=== PATIENT | male | born 1945 | race American Indian/Alaskan Native ===

== ENCOUNTER 2016-10-16 05:11 | Inpatient (IN) | payer BC, MEDICARE ==
[2016-10-16 05:32] LABS: Basophils % (Auto) 1.4 % (0.0-1.8); Eosinophils % (Auto) 1.9 % (0.0-4.3); Hematocrit 43.6 % (35.5-45.6); Hemoglobin 14.5 gm/dl (11.8-15.2); Mean Corpuscular HGB Conc 33 % (32-34); Mean Corpuscular Hemoglobin 28 pg (28-32); Mean Corpuscular Volume 84 fl (84-94); Platelet Count 229 K/mm3 (140-440); Red Cell Distribution Width 14.3 % (13.2-15.2); White Blood Count 6.9 K/mm3 (4.5-11.0)
[2016-10-16 05:45] LABS: INR 1.03 (0.87-1.13)
[2016-10-16 05:46] LABS: Partial Thromboplastin Time 28.4 Sec. (24.2-36.6)
[2016-10-16 05:55] LABS: Anion Gap 14 mmol/L; BUN/Creatinine Ratio 6.42; Blood Urea Nitrogen 9 mg/dL (9-20); Calcium 8.8 mg/dL (8.4-10.2); Carbon Dioxide 29 mmol/L (22-30); Chloride 100.1 mmol/L (98-107); Glucose 117 mg/dL (75-100); Potassium 4.1 mmol/L (3.6-5.0); Sodium 139 mmol/L (137-145)
--- NOTE | 2016-10-16 06:49 | Event Note ---
Date: 10/16/16 initial ekg morphologically abnormal, not c/w stemi stat repeat ekg also abnormal, not c/w stemi. precordial abnormalities on repeat ekg appear improved.
[2016-10-16 07:00] LABS: Creatine Kinase MB 5.1 ng/mL (0.0-4.0)
--- NOTE | 2016-10-16 07:44 | Emergency Department Report ---
ED Chest Pain HPI - General Chief Complaint: Chest Pain Stated Complaint: CHEST PAIN Time Seen by Provider: 10/16/16 07:17 Source: patient Mode of arrival: Ambulatory Limitations: No Limitations - History of Present Illness Initial Comments: The patient states she has chronic problems with hiccups. Last night he took her Thorazine tablet for this. However he was not experiencing any chest pain until 4 AM. The hiccuping had already stopped. Patient was at work at the time. He describes a dull ache in the substernal region which lasted for 2 hours. It did not radiate. It was not pleuritic. There were no associated symptoms. Patient states that he was seen by [facility] last year and had a stress test. He states he "passed with flying colors". He has no knowledge of having a previously abnormal EKG. Severity scale (0 -10): 4 - Related Data Home Medications Medication Instructions Recorded Confirmed Last Taken ALBUTEROL Inhaler [ProAir HFA 2 puff IH QID PRN 10/31/14 10/16/16 Unknown Inhaler] Amlodipine Besylate [Amlodipine 10 mg PO DAILY 11/14/14 10/16/16 11/14/14 05:00 Besylate] Atorvastatin Calcium 20 mg PO DAILY 10/16/16 10/16/16 Unknown Previous Rx's Medication Instructions Recorded Last Taken Type Cyclobenzaprine [Flexeril 10 MG 10 mg PO Q8H PRN #60 tablet 11/15/14 Unknown Rx TAB] Allergies Allergy/AdvReac Type Severity Reaction Status Date / Time peanut Allergy Swelling Unverified 07/10/14 13:20 Penicillins Allergy Itching Verified 04/15/14 11:29 GUDELIA score - Gudelia Score Age > 65: (1) Yes Aspirin use within the Past 7 Days: (0) No 3 or more CAD Risk Factors: (1) Yes 2 or more Angina events in past 24 hrs: (0) No Known CAD with more than 50% Stenosis: (0) No Elevated Cardiac Markers: (1) Yes ST Deviation Greater than 0.5mm: (0) No GUDELIA Score: 3 ED Review of Systems ROS: Stated complaint: CHEST PAIN Other details as noted in HPI Constitutional: denies: chills, fever Eyes: denies: eye pain, eye discharge, vision change ENT: denies: ear pain, throat pain Respiratory: denies: cough, shortness of breath, wheezing Cardiovascular: chest pain. denies: palpitations Endocrine: no symptoms reported Gastrointestinal: denies: abdominal pain, nausea, diarrhea Genitourinary: denies: urgency, dysuria Musculoskeletal: denies: back pain, joint swelling, arthralgia Skin: denies: rash, lesions Neurological: denies: headache, weakness, paresthesias Psychiatric: denies: anxiety, depression Hematological/Lymphatic: denies: easy bleeding, easy bruising ED Past Medical Hx - Past Medical History Previous Medical History?: Yes Hx Hypertension: Yes Hx Kidney Stones: Yes Hx Asthma: Yes (seasonal.) Additional medical history: bells palsy - Surgical History Past Surgical History?: Yes Hx Cholecystectomy: Yes (2009) - Social History Smoking Status: Never Smoker Substance Use Type: None - Medications Home Medications: Home Medications Medication Instructions Recorded Confirmed Last Taken Type ALBUTEROL Inhaler [ProAir HFA 2 puff IH QID PRN 10/31/14 10/16/16 Unknown History Inhaler] Amlodipine Besylate [Amlodipine 10 mg PO DAILY 11/14/14 10/16/16 11/14/14 05:00 History Besylate] Cyclobenzaprine [Flexeril 10 MG 10 mg PO Q8H PRN #60 tablet 11/15/14 10/16/16 Unknown Rx TAB] Atorvastatin Calcium 20 mg PO DAILY 10/16/16 10/16/16 Unknown History ED Physical Exam - General Limitations: No Limitations General appearance: alert, in no apparent distress - Head Head exam: Present: atraumatic, normocephalic - Eye Eye exam: Present: normal appearance, PERRL, EOMI. Absent: scleral icterus - ENT ENT exam: Present: normal exam, mucous membranes moist - Neck Neck exam: Present: normal inspection. Absent: tenderness, meningismus - Respiratory Respiratory exam: Present: normal lung sounds bilaterally. Absent: respiratory distress - Cardiovascular Cardiovascular Exam: Present: regular rate, normal rhythm. Absent: systolic murmur, diastolic murmur, rubs, gallop - GI/Abdominal GI/Abdominal exam: Present: soft, normal bowel sounds. Absent: distended, tenderness, guarding, rebound, rigid - Rectal Rectal exam: Present: deferred - Extremities Exam Extremities exam: Present: normal inspection - Back Exam Back exam: Present: normal inspection - Neurological Exam Neurological exam: Present: alert, oriented X3, CN II-XII intact. Absent: motor sensory deficit - Psychiatric Psychiatric exam: Present: normal affect, normal mood - Skin Skin exam: Present: warm, dry, intact, normal color. Absent: rash ED Course Vital Signs 10/16/16 10/16/16 10/16/16 05:21 06:29 06:30 Temperature 98.6 F Pulse Rate 62 Respiratory 18 14 19 Rate Blood Pressure 124/65 Blood Pressure 109/56 [Right] O2 Sat by Pulse 99 97 96 Oximetry 10/16/16 10/16/16 10/16/16 07:20 07:27 08:45 Temperature 98.5 F 97.7 F Pulse Rate 58 L 62 Respiratory 16 18 18 Rate Blood Pressure Blood Pressure 115/78 148/62 [Right] O2 Sat by Pulse 100 97 97 Oximetry - Reevaluation(s) Reevaluation #1: Patient will be treated with heparin and aspirin. He'll be admitted to the hospitalist service to rule out acute coronary syndrome. We'll consult [place] [facility]. 10/16/16 07:44 ED Medical Decision Making - Lab Data Result diagrams: 10/16/16 05:21 10/16/16 05:21 Laboratory Results - last 24 hr 10/16/16 10/16/16 10/16/16 05:21 05:21 05:21 WBC 6.9 RBC 5.20 H Hgb 14.5 Hct 43.6 MCV 84 MCH 28 MCHC 33 RDW 14.3 Plt Count 229 Lymph % (Auto) 36.5 H Clark % (Auto) 14.0 H Eos % (Auto) 1.9 Baso % (Auto) 1.4 Lymph # 2.5 Clark # 1.0 H Eos # 0.1 Baso # 0.1 Seg Neutrophils % 46.2 Seg Neutrophils # 3.2 PT 13.4 INR 1.03 APTT 28.4 Sodium 139 Potassium 4.1 Chloride 100.1 Carbon Dioxide 29 Anion Gap 14 BUN 9 Creatinine 1.4 Estimated GFR > 60 BUN/Creatinine Ratio 6.42 Glucose 117 H Calcium 8.8 Total Creatine Kinase CK-MB (CK-2) CK-MB (CK-2) Rel Index Troponin T < 0.010 10/16/16 05:21 WBC RBC Hgb Hct MCV MCH MCHC RDW Plt Count Lymph % (Auto) Clark % (Auto) Eos % (Auto) Baso % (Auto) Lymph # Clark # Eos # Baso # Seg Neutrophils % Seg Neutrophils # PT INR APTT Sodium Potassium Chloride Carbon Dioxide Anion Gap BUN Creatinine Estimated GFR BUN/Creatinine Ratio Glucose Calcium Total Creatine Kinase 177 H CK-MB (CK-2) 5.1 H CK-MB (CK-2) Rel Index 2.8 Troponin T - EKG Data -: EKG Interpreted by Me EKG shows normal: sinus rhythm, axis, intervals, QRS complexes - EKG Data 10/16/16 07:50 The patient had 2 serial EKGs previously reviewed by Dr. Jones. The first EKG did show slight ST elevation in V2 and V3 there are inverted T waves in the high lateral and anterolateral leads as well as standard lead aVF. On the second EKG the J-point is down somewhat. This does not need ST elevation UT criteria. However the EKGs are nonreassuring and ischemia may be considered normal sinus rhythm and left axis/LAFB is noted. The patient does have a prior EKG dated 05-19. There are inverted T waves on this EKG in V5 and V6 standard lead to and there is some flattening elsewhere. There are some increased T- wave inversions. However, they are not very deep. 10/16/16 07:52 - Radiology Data CXR NAF Critical care attestation.: If time is entered above; I have spent that time in minutes in the direct care of this critically ill patient, excluding procedure time. ED Disposition Clinical Impression: Abnormal EKG Chest pain Qualifiers: Chest pain type: unspecified Qualified Code(s): R07.9 - Chest pain, unspecified Disposition: OP ADMITTED IP TO THIS HOSP Is pt being admited?: Yes Does the pt Need Aspirin: Yes Condition: Stable Time of Disposition: 07:53
[2016-10-16] MEDS ORDERED: ASPIRIN PO ONE (07:47)
--- NOTE | 2016-10-16 08:28 | History and Physical Report ---
History of Present Illness Date of examination: 10/16/16 History of present illness: The patient states she has chronic problems with hiccups. Last night he took her Thorazine tablet for this. However he was not experiencing any chest pain until 4 AM. The hiccuping had already stopped. Patient was at work at the time. He describes a dull ache in the substernal region which lasted for 2 hours. It did not radiate. It was not pleuritic. There were no associated symptoms. Patient states that he was seen by [facility] last year and had a stress test. He states he "passed with flying colors". He has no knowledge of having a previously abnormal EKG. Past History Past Medical History: hypertension, hyperlipidemia Medications and Allergies Allergies Allergy/AdvReac Type Severity Reaction Status Date / Time peanut Allergy Swelling Unverified 07/10/14 13:20 Penicillins Allergy Itching Verified 04/15/14 11:29 Home Medications Medication Instructions Recorded Confirmed Last Taken Type ALBUTEROL Inhaler [ProAir HFA 2 puff IH QID PRN 10/31/14 10/16/16 Unknown History Inhaler] Amlodipine Besylate [Amlodipine 10 mg PO DAILY 11/14/14 10/16/16 11/14/14 05:00 History Besylate] Cyclobenzaprine [Flexeril 10 MG 10 mg PO Q8H PRN #60 tablet 11/15/14 10/16/16 Unknown Rx TAB] Atorvastatin Calcium 20 mg PO DAILY 10/16/16 10/16/16 Unknown History Active Meds: Active Medications Enoxaparin Sodium (Lovenox) 80 mg 1 mg/kg (80 mg) SUB-Q Q12HR [place] Review of Systems Cardiovascular: chest pain Exam - Constitutional Vitals: Temp Pulse Resp BP Pulse Ox 98.6 F 62 19 124/65 96 10/16/16 05:21 10/16/16 05:21 10/16/16 06:30 10/16/16 06:29 10/16/16 06:30 General appearance: Present: mild distress - EENT Eyes: Present: PERRL, EOM intact ENT: hearing intact, clear oral mucosa - Neck Neck: Present: supple, normal ROM - Respiratory Respiratory effort: normal Respiratory: bilateral: CTA - Cardiovascular Rhythm: regular Heart Sounds: Present: S1 & S2 - Extremities Extremities: no ischemia, No edema - Abdominal General gastrointestinal: Present: soft, non-tender, non-distended, normal bowel sounds - Musculoskeletal Musculoskeletal: strength equal bilaterally - Psychiatric Psychiatric: appropriate mood/affect, intact judgment & insight - Neurologic Neurologic: CNII-XII intact, moves all extremities Results - Labs CBC & Chem 7: 10/16/16 05:21 10/16/16 05:21 Labs: Laboratory Last Values WBC 6.9 K/mm3 (4.5-11.0) 10/16/16 05:21 RBC 5.20 M/mm3 (3.65-5.03) H 10/16/16 05:21 Hgb 14.5 gm/dl (11.8-15.2) 10/16/16 05:21 Hct 43.6 % (35.5-45.6) 10/16/16 05:21 MCV 84 fl (84-94) 10/16/16 05:21 MCH 28 pg (28-32) 10/16/16 05:21 MCHC 33 % (32-34) 10/16/16 05:21 RDW 14.3 % (13.2-15.2) 10/16/16 05:21 Plt Count 229 K/mm3 (140-440) 10/16/16 05:21 Lymph % (Auto) 36.5 % (13.4-35.0) H 10/16/16 05:21 [place] % (Auto) 14.0 % (0.0-7.3) H 10/16/16 05:21 Eos % (Auto) 1.9 % (0.0-4.3) 10/16/16 05:21 Baso % (Auto) 1.4 % (0.0-1.8) 10/16/16 05:21 Lymph # 2.5 K/mm3 (1.2-5.4) 10/16/16 05:21 [place] # 1.0 K/mm3 (0.0-0.8) H 10/16/16 05:21 Eos # 0.1 K/mm3 (0.0-0.4) 10/16/16 05:21 Baso # 0.1 K/mm3 (0.0-0.1) 10/16/16 05:21 Seg Neutrophils % 46.2 % (40.0-70.0) 10/16/16 05:21 Seg Neutrophils # 3.2 K/mm3 (1.8-7.7) 10/16/16 05:21 PT 13.4 Sec. (12.2-14.9) 10/16/16 05:21 INR 1.03 (0.87-1.13) 10/16/16 05:21 APTT 28.4 Sec. (24.2-36.6) 10/16/16 05:21 Sodium 139 mmol/L (137-145) 10/16/16 05:21 Potassium 4.1 mmol/L (3.6-5.0) 10/16/16 05:21 Chloride 100.1 mmol/L (98-107) 10/16/16 05:21 Carbon Dioxide 29 mmol/L (22-30) 10/16/16 05:21 Anion Gap 14 mmol/L 10/16/16 05:21 BUN 9 mg/dL (9-20) 10/16/16 05:21 Creatinine 1.4 mg/dL (0.8-1.5) 10/16/16 05:21 Estimated GFR > 60 ml/min 10/16/16 05:21 BUN/Creatinine Ratio 6.42 % 10/16/16 05:21 Glucose 117 mg/dL (75-100) H 10/16/16 05:21 Calcium 8.8 mg/dL (8.4-10.2) 10/16/16 05:21 Total Creatine Kinase 177 units/L (55-170) H 10/16/16 05:21 CK-MB (CK-2) 5.1 ng/mL (0.0-4.0) H 10/16/16 05:21 CK-MB (CK-2) Rel Index 2.8 (0-4) 10/16/16 05:21 Troponin T < 0.010 ng/mL (0.00-0.029) 10/16/16 05:21 Assessment and Plan - Patient Problems (1) Abnormal EKG Current Visit: Yes Status: Acute Plan to address problem: Awaiting further cardiology intervention (2) Chest pain Current Visit: Yes Status: Acute Qualifiers: Chest pain type: unspecified Ischemic chest pain type: I Qualified Code(s ): R07.9 - Chest pain, unspecified Plan to address problem: Patient will be admitted to telemetry, will get cardiology consult, aspirin, beta blockers, 2-D echo, Nikolai, (3) HTN (hypertension) Current Visit: No Status: Chronic Qualifiers: Hypertension type: H Plan to address problem: Continue metoprolol (4) Hypercholesteremia Current Visit: No Status: Chronic Plan to address problem: We'll start simvastatin and follow lipid panel
--- NOTE | 2016-10-16 08:28 | XRay Report ---
FINAL REPORT EXAM: XR CHEST 1V AP HISTORY: cp TECHNIQUE: Chest, portable PRIORS: None. FINDINGS: There is no infiltrate or pleural effusion seen. The lungs and pleural spaces are clear. There is no pneumothorax. There is no pulmonary vascular congestion. IMPRESSION: There is no acute abnormality identified.
[2016-10-16] MEDS ORDERED: LOPRESSOR PO ONE (08:40)
[2016-10-16] MEDS ORDERED: FLEXERIL PO PRN (10:00)
[2016-10-16] MEDS ORDERED: PROAIR IH PRN (10:00)
[2016-10-16] MEDS ORDERED: LOVENOX SUB-Q SCH (10:00)
[2016-10-16] MEDS ORDERED: NORCO 5/325 PO PRN (10:00)
--- NOTE | 2016-10-16 11:34 | Consultation ---
History of Present Illness Consult date: 10/16/16 Consult reason: chest pain History of present illness: The patient states he presented to the ER this morning with chest pain at 4 AM. the patient was at work at the time. He describes a dull ache in the substernal region which lasted for 2 hours, without radiation, constant. Patient has never had chest pain before. PAtient denies SOB, peripheral edema, orhtopnea, pnd, palpitations, dizziness or syncope. Past History Past Medical History: hypertension, hyperlipidemia Past Surgical History: Other (brain surgery - removal of mass) Social history: denies: smoking, alcohol abuse, prescription drug abuse, IV drug use Family history: no significant family history Medications and Allergies Allergies Allergy/AdvReac Type Severity Reaction Status Date / Time peanut Allergy Swelling Unverified 07/10/14 13:20 Penicillins Allergy Itching Verified 04/15/14 11:29 Home Medications Medication Instructions Recorded Confirmed Last Taken Type ALBUTEROL Inhaler [ProAir HFA 2 puff IH QID PRN 10/31/14 10/16/16 Unknown History Inhaler] Amlodipine Besylate [Amlodipine 10 mg PO DAILY 11/14/14 10/16/16 11/14/14 05:00 History Besylate] Cyclobenzaprine [Flexeril 10 MG 10 mg PO Q8H PRN #60 tablet 11/15/14 10/16/16 Unknown Rx TAB] Atorvastatin Calcium 20 mg PO DAILY 10/16/16 10/16/16 Unknown History Active Meds: Active Medications Acetaminophen/Hydrocodone Bitart ([place] 5/325) 1 each PO Q6H PRN PRN Reason: Pain, Moderate (4-6) Acyclovir (Zovirax) 400 mg PO Q8HR [place]TON Albuterol (Proair) 2 puff IH QID PRN PRN Reason: Shortness Of Breath Cyclobenzaprine HCl (Flexeril) 10 mg PO Q8H PRN PRN Reason: Muscle Spasm Enoxaparin Sodium (Lovenox) 80 mg 1 mg/kg (80 mg) SUB-Q Q12HR [place] Sodium Chloride (Nacl 0.9% 1000 Ml) 1,000 mls @ 125 mls/hr IV DIRECT H[place] Metoprolol Tartrate (Lopressor) 25 mg PO QDAY [place] Simvastatin (Zocor) 20 mg PO QHS [place] Review of Systems All systems: negative (for complaints mentioned in HPI) Physical Examination Vital Signs Temp Pulse Resp BP Pulse Ox 98.6 F 62 18 109/56 99 10/16/16 05:21 10/16/16 05:21 10/16/16 05:21 10/16/16 05:21 10/16/16 05:21 General appearance: no acute distress HEENT: Positive: PERRL, EOMI Neck: Positive: neck supple, trachea midline Cardiac: Positive: Reg Rate and Rhythm, S1/S2 Lungs: Positive: Normal Exam, clear to auscultation, Normal Breath Sounds Abdomen: Positive: Soft, Active Bowel Sounds Extremities: Present: normal. Absent: edema Results 10/16/16 05:10/16/16 05:21 EKG interpretations - EKG Sinus rhythms and dysrhythmias: sinus rhythm (sinus rhythm with nonspecific sttw changes) Assessment and Plan (1) Abnormal EKG (2) Chest pain - resolved. initial troponin negative. Continue to cycle troponins. BB, ASA, and statin recommended. Stress test and echo ordered. (3) HTN (hypertension) - continue metoprolol (4) Hypercholesteremia - agree with starting statin.
[2016-10-16] MEDS: ZOVIRAX PO SCH ×2 (16:01→22:23)
[2016-10-16] MEDS: LOVENOX SUB-Q SCH ×2 (16:01→22:23)
[2016-10-16] MEDS: LOPRESSOR PO SCH (16:02)
[2016-10-16] MEDS: NACL 0.9% 1000 ML 1,000 ML IV SCH (16:03)
--- NOTE | 2016-10-16 17:34 | Admit Criteria Form ---
Admission Criteria Documentation: CARDIOLOGY GRG Clinical Indications for Admission to Inpatient Care ( Place 'X' for any and all applicable criteria): Hospital admission is needed for appropriate care of the patient because of ANY ONE of the following (1): [ ] I. Hemodynamic instability as indicated by ALL of the following (1)(2)(3) (4)(5) [ ]a) Vital signs or other findings not as expected for chronic patient condition or baseline [ ]b) Instability indicated by ANY ONE of the following: [ ]i) Hypotension [ ]ii) Symptomatic Tachycardia unresponsive to treatment ( e.g., analgesia, fluids, sedation as indicated) [ ]iii) Inadequate perfusion indicated by ANY ONE of the following: [ ] 1) Lactic acidosis (> 2 mmol/L) [ ] 2) New abnormal capillary refill (> 3 seconds) [ ] 3) Reduced urine output [ ] 4) New altered mental status [ ]iv) Orthostatic vital sign changes unresponsive to treatment (e.g., fluids) [ ]v) IV inotropic or vasopressor medication required to maintain adequate blood pressure or perfusion [ ] II. Severe heart failure as indicated by ANY ONE of the following(17)(18) [ ]a) Respiratory distress [ ]b) Hypotension [ ]c) Anasarca (refractory to outpatient therapy) [ ]d) Cardiac arrhythmias of immediate concern [ ]e) Myocardial ischemia [ ] III. Cardiac arrhythmias or findings of immediate concern indicated by ANY ONE of the following (19)(20): [ ] a) Heart rhythms that are inherently dangerous or unstable indicated by ANY ONE of the following (21)(22)(23): [ ] i) Resuscitated ventricular fibrillation or cardiac arrest [ ] ii) Ventricular escape rhythm [ ] iii) Sustained ventricular tachycardia (30 seconds or more of ventricular rhythm at greater than 100 beats per minute) [ ] iv) Nonsustained ventricular tachycardia and ANY ONE of the following: [ ] 1) Suspected cardiac ischemia as cause or consequence of ventricular tachycardia [ ] 2) In setting of acute myocarditis [ ] b) Unstable cardiac conduction defects indicated by ANY ONE of the following(23)(24)(25) [ ] i) Type II second-degree atrioventricular block [ ]ii) Third-degree atrioventricular block [ ]iii) New-onset left bundle branch block with suspected myocardial ischemia [ ]c) Any heart rhythm and ANY ONE of the following (21)(22)(26)(27) (28) [ ] i) Continuous long-term ECG monitoring needed (e.g., initiation of drug requiring monitoring for more than 24 hours) [ ] ii) Patient has automatic implanted cardioverter defibrillator that is repeatedly firing, malfunctioning, or in need of immediate adjustment of settings beyond the scope of ambulatory or observation care [ ]d) Heart rhythms of concern due to ANY ONE of the following: [ ] i) Hypotension [ ] ii) Respiratory distress [ ] iii) Association with other significant symptoms (e.g., bradycardia with syncope or ongoing dizziness, supraventricular tachycardia with chest pain (14)(15)(17) [ ] IV. Monitoring for cardiac contusion beyond the scope of observation care needed [A](30)(31)(32) [ ] V. Surgical or device complication (e.g., valve replacement complication , pacemaker dysfunction) (35)(41)(44)(45)(46) [ ] . Inpatient palliative care needed. [B](49) Also use Inpatient Palliative Care Criteria [ ] VII. Nonbacterial thrombotic (marantic) endocarditis (36)(43)(47)(48) [ X] VIII. Cardiology condition, symptom, or finding for which emergency and observation care has failed or are not considered appropriate. [ ] IX. Acute valvular disease requiring inpatient as indicated by ANY ONE of the following (41) [ ]a) Acute valvular regurgitation (42) [ ]b) Noninfectious valvulitis (43) [ ]c) Obstructive valve thrombosis [ ]d) Paravalvular leak [ ]e) Other significant valvular disorder remaining after emergency or observation level of care (as appropriate) [ ]X. Pericardial disease requiring inpatient treatment as indicated by ANY ONE of the following (33)(34)(35)(36)(37) [ ]a) Suspected tamponade (38)(39)(40) [ ]b) Hemopericardium [ ]c) Other significant pericardial disorder remaining after emergency or observation level of care (as appropriate) [ ] XI. Cardiac ischemia beyond scope of emergency and observation care. [ ] XII. Hypertension requiring inpatient treatment as indicated by ANY ONE of the following (6)(7)(8) [ ]a) SBP greater than 220 mm Hg or DBP greater than 120 mmHg despite treatment [ ]b) SBP greater than 140 mm Hg or DBP greater than 100 mm Hg with evidence of acute end organ damage as indicated by ANY ONE of the following [ ] i) Altered mental status [ ] ii) Acute renal failure as indicated by new onset of ANY ONE of the following (9)(10)(11)(12)(13) [ ]1) 3-fold rise in serum creatinine from baseline [ ]2) Serum creatinine greater than 4 mg/dL ( 354 micromoles/L) with acute rise greater than 0.5 mg/dL (44.2 micromoles/L) [ ]3) Reduction of more than 75% in estimated glomerular filtration rate from baseline [ ]4) Estimated glomerular filtration rate less than 35 mL/min/1.73m2 (0.59 mL/sec/1.73m2) in child up to 18 years of age [ ]5) Cessation of urine output indicated by ALL of the following [ ]A. Adequate volume status [ ]B. Inadequate urine output as indicated by ANY ONE of the following [ ]a. Urine output less than 0.3 mL/kg/hr for 24 hours [ ]b. Anuria (urine output less than 0.1 mL/kg/hr) for 12 hours [ ] iii) Aortic dissection [ ] iv) Myocardial Ischemia [ ] v) Left ventricular heart failure [ ]vi) Retinal Hemorrhage [ ]vii) Other significant finding [ ]c) Hypertension in child requiring inpatient treatment as indicated by ALL of the following(14)(15)(16) [ ] i) Outpatient treatment not effective, not available, or not appropriate [ ]ii) SBP or DBP greater than 95th percentile for age [ ]iii) Evidence of acute end organ damage as indicated by ANY ONE of the following [ ]1) Altered mental status [ ]2) Acute renal failure as indicated by new onset of ANY ONE of the following(9)(10)(11)(12)(13) [ ]A. 3-fold rise in serum creatinine from baseline [ ]B. Serum creatinine greater than 4 mg/dL (354 micromoles/L) with acute rise greater than 0.5 mg/dL (44.2 micromoles/L) [ ]C. Reduction of more than 75% in estimated glomerular filtration rate from baseline [ ]D. Estimated glomerular filtration rate less than 35 mL/min/1.73m2 (0.59 mL/sec/1.73m2) in child up to 18 years of age [ ]E. Cessation of urine output indicated by ALL of the following [ ]a. Adequate volume status [ ]b. Inadequate urine output as indicated by ANY ONE of the following [ ]i) Urine output less than 0.3 mL/kg/hr for 24 hours [ ]ii) Anuria ( urine output less than 0.1 mL/kg/hr) for 12 hours [ ]3) Severe headache [ ]4) Visual disturbance [ ]5) Retinal hemorrhage [ ]6) Other significant finding [ ]XIII. Complications of transplanted heart indicated by ANY ONE of the following(61): [ ]a) Acute graft rejection requiring inpatient management (eg, intravenous immunosuppression)(62)(63) [ ]b) Acute graft heart failure indicated by ANY ONE of the following(64): [ ]i) Hemodynamic instability [ ]ii) Cardiac arrhythmias of immediate concern [ ]iii) Pulmonary edema that is very severe (eg, mechanical ventilation needed, imminent or likely, need for 100% oxygen to keep oxygen saturation above 90%) [ ]iv) Pulmonary edema that is persistent as indicated by ALL of the following: [ ]1) New need for oxygen therapy to keep oxygen saturation above 90% (or increased FiO2 need from baseline) [ ]2) Has not improved sufficiently with emergency department or observation care IV diuretics or other heart failure treatments[E] [ ]v) Altered mental status that is severe or persistent [ ]vi) Increased creatinine (new on laboratory test) with reduction of more than 50% in estimated glomerular filtration rate from baseline [ ]vii) Progressively (ongoing) rising creatinine (known from past laboratory test) with reduction of more than 25% in estimated glomerular filtration rate from baseline [ ]viii) Acute renal failure [ ]ix) Acute peripheral ischemia (eg, examination shows pulseless, cool, mottled, or cyanotic extremity) [ ]x) Pulmonary artery catheter monitoring needed [ ]xi) Other sign or symptom of heart failure requiring inpatient treatment (ie, too severe or not responsive to outpatient and observation care treatment) [ ]c) Infection requiring inpatient management (eg, Hemodynamic instability, need for intravenous antimicrobial treatment)(66)(67)(68)(69)(70) [ ]d) Cardiac allograft vasculopathy requiring inpatient management ( eg evidence of cardiac ischemia)(71) [ ]e) Other complication of transplanted heart (eg, stroke, severe pulmonary hypertension, severe valvular dysfunction) requiring inpatient management(72) The original [facility] [employer] content created by [employer] has been revised. The portions of the content which have been revised are identified through the use of italic text or in bold, and [facility] has neither reviewed nor approved the modified material. All other unmodified content is copyright [facility] [employer]. Please see references footnoted in the original [facility] [email or web address] edition 2016 Admission Criteria Met: Yes
[2016-10-16] MEDS: ZOCOR PO SCH (22:23)
[2016-10-17] MEDS: ZOVIRAX PO SCH ×3 (05:55→21:52)
--- NOTE | 2016-10-17 08:07 | Progress Note ---
Assessment and Plan (1) Abnormal EKG (2) Chest pain - resolved. initial troponin negative. Continue to cycle troponins. BB, ASA, and statin recommended. Stress test today. (3) HTN (hypertension) - continue metoprolol. add lisinopril (4) Hypercholesteremia - agree with starting statin. Subjective Date of service: 10/17/16 Interval history: No acute events. Resting comfortably. No chest pain or SOB. Objective Vital Signs Temp Pulse Pulse Pulse Pulse Resp Resp 10/17/16 04:43 98.6 F 53 L 18 10/17/16 03:10 58 L 10/17/16 03:05 58 L 18 10/17/16 00:59 98.2 F 57 L 20 10/16/16 22:19 10/16/16 20:28 97.7 F 59 L 18 10/16/16 16:40 97.8 F 52 L 18 10/16/16 16:02 78 10/16/16 13:59 20 10/16/16 13:58 64 10/16/16 12:59 10/16/16 12:00 97.7 F 56 L 16 10/16/16 10:00 20 BP BP Pulse Ox 10/17/16 04:43 157/84 96 10/17/16 03:10 10/17/16 03:05 100 10/17/16 00:59 147/78 98 10/16/16 22:19 97 10/16/16 20:28 136/78 97 10/16/16 16:40 135/78 99 10/16/16 16:02 150/72 10/16/16 13:59 10/16/16 13:58 10/16/16 12:59 100 10/16/16 12:00 148/79 98 10/16/16 10:00 - Physical Examination HEENT: Positive: PERRL, EOMI Neck: Positive: neck supple, trachea midline Abdomen: Positive: Soft, Active Bowel Sounds Extremities: Present: normal. Absent: edema - EKG Sinus rhythms and dysrhythmias: sinus rhythm (sinus rhythm with nonspecific sttw changes)
[2016-10-17] MEDS ORDERED: LEXISCAN IV ONE (08:17)
--- NOTE | 2016-10-17 09:39 | Discharge Summary ---
Providers - Providers Date of Admission: 10/16/16 09:26 Attending physician: LIANNE VUONG Primary care physician: LINDSEY BLAS MD Hospitalization Condition: Stable Exam - Constitutional Vitals: Temp Pulse Resp BP Pulse Ox 98.6 F 65 18 153/86 96 10/17/16 04:43 10/17/16 08:27 10/17/16 04:43 10/17/16 08:27 10/17/16 04:43 Plan Follow up with: PRIMARY CAREMD [Primary Care Provider] - 3-5 Days
--- NOTE | 2016-10-17 09:43 | Event Note ---
Date: 10/17/16 Stress test comleted today. Stress test shows reversible moderate sized inferior wall defect with EF 35% Echo also completed today showing EF 40-45% with inferior wall hypokinesis. Plan for [facility] tomorrow.
--- NOTE | 2016-10-17 10:34 | Progress Note ---
Assessment and Plan Assessment and plan: Chest pain. He is on Aspirin daily. Stress test done today was abnormal. For cardiac cath tomorrow. Cardiology following. On Metoprolol, Lovenox Hypertension. BP is uncontrolled. We will increase lisinopril to 20 mg by mouth twice daily. Continue Lopressor 25 mg daily Hyperlipidemia. On statins. DVT Prophylaxis with Lovenox. FULL CODE STATUS History Interval history: Chest pain, no shortness of breath Hospitalist Physical - Physical exam Narrative exam: Gen appearance: Not in acute distress, HEENT: Normocephalic, atraumatic Neck: Supple, no JVD Lungs : Lungs clear to auscultation bilaterally, no crackles no wheezes. Heart :S1-S2 regular, no murmurs, rubs or gallop Abdomen: soft, non tender, non-distended,normal bowel sounds Extremities:no edema no clubbing or cyanosis, Neuro: Awake, alert, oriented 3, no focal neurologic signs Psych:normal mood - Constitutional Vitals: Temp Pulse Resp BP Pulse Ox 98.6 F 65 18 153/86 96 10/17/16 04:43 10/17/16 08:27 10/17/16 04:43 10/17/16 08:27 10/17/16 04:43 General appearance: Present: no acute distress Results - Labs CBC & Chem 7: 10/16/16 05:21 10/16/16 05:21 Labs: Laboratory Last Values WBC 6.9 K/mm3 (4.5-11.0) 10/16/16 05:21 RBC 5.20 M/mm3 (3.65-5.03) H 10/16/16 05:21 Hgb 14.5 gm/dl (11.8-15.2) 10/16/16 05:21 Hct 43.6 % (35.5-45.6) 10/16/16 05:21 MCV 84 fl (84-94) 10/16/16 05:21 MCH 28 pg (28-32) 10/16/16 05:21 MCHC 33 % (32-34) 10/16/16 05:21 RDW 14.3 % (13.2-15.2) 10/16/16 05:21 Plt Count 229 K/mm3 (140-440) 10/16/16 05:21 Lymph % (Auto) 36.5 % (13.4-35.0) H 10/16/16 05:21 [place] % (Auto) 14.0 % (0.0-7.3) H 10/16/16 05:21 Eos % (Auto) 1.9 % (0.0-4.3) 10/16/16 05:21 Baso % (Auto) 1.4 % (0.0-1.8) 10/16/16 05:21 Lymph # 2.5 K/mm3 (1.2-5.4) 10/16/16 05:21 [place] # 1.0 K/mm3 (0.0-0.8) H 10/16/16 05:21 Eos # 0.1 K/mm3 (0.0-0.4) 10/16/16 05:21 Baso # 0.1 K/mm3 (0.0-0.1) 10/16/16 05:21 Seg Neutrophils % 46.2 % (40.0-70.0) 10/16/16 05:21 Seg Neutrophils # 3.2 K/mm3 (1.8-7.7) 10/16/16 05:21 PT 13.4 Sec. (12.2-14.9) 10/16/16 05:21 INR 1.03 (0.87-1.13) 10/16/16 05:21 APTT 28.4 Sec. (24.2-36.6) 10/16/16 05:21 Sodium 139 mmol/L (137-145) 10/16/16 05:21 Potassium 4.1 mmol/L (3.6-5.0) 10/16/16 05:21 Chloride 100.1 mmol/L (98-107) 10/16/16 05:21 Carbon Dioxide 29 mmol/L (22-30) 10/16/16 05:21 Anion Gap 14 mmol/L 10/16/16 05:21 BUN 9 mg/dL (9-20) 10/16/16 05:21 Creatinine 1.4 mg/dL (0.8-1.5) 10/16/16 05:21 Estimated GFR > 60 ml/min 10/16/16 05:21 BUN/Creatinine Ratio 6.42 % 10/16/16 05:21 Glucose 117 mg/dL (75-100) H 10/16/16 05:21 Calcium 8.8 mg/dL (8.4-10.2) 10/16/16 05:21 Total Creatine Kinase 177 units/L (55-170) H 10/16/16 05:21 CK-MB (CK-2) 5.1 ng/mL (0.0-4.0) H 10/16/16 05:21 CK-MB (CK-2) Rel Index 2.8 (0-4) 10/16/16 05:21 Troponin T < 0.010 ng/mL (0.00-0.029) 10/16/16 14:54
[2016-10-17] MEDS: LOVENOX SUB-Q SCH ×2 (11:02→21:51)
[2016-10-17] MEDS: ZESTRIL PO SCH ×2 (11:03→21:54)
[2016-10-17] MEDS: LOPRESSOR PO SCH (11:03)
[2016-10-17] MEDS: NACL 0.9% 1000 ML 1,000 ML IV SCH ×2 (11:18→22:11)
[2016-10-17] MEDS: ECOTRIN PO SCH (19:23)
[2016-10-17] MEDS: ZOCOR PO SCH (21:53)
[2016-10-18] MEDS: ECOTRIN PO SCH ×2 (06:10→15:24)
[2016-10-18] MEDS: ZESTRIL PO SCH ×3 (06:11→22:30)
[2016-10-18] MEDS: ZOVIRAX PO SCH ×3 (06:11→22:31)
[2016-10-18] MEDS: NACL 0.9% 1000 ML 1,000 ML IV SCH ×2 (06:13→15:26)
--- NOTE | 2016-10-18 09:44 | Progress Note ---
Assessment and Plan --Atypical Chest pain. Stress test showed nonreversible apical defect. For cardiac cath today. Cardiology following. On Metoprolol, Lisinopril, Aspirin and Atorvastatin and continue Lovenox --Hypertension. BP is uncontrolled. We will increase lisinopril to 40 mg by mouth twice daily. Continue Lopressor 25 mg daily. --Hyperlipidemia. On statins. DVT Prophylaxis with Lovenox. D/c home if cardiac cath is normal Subjective Date of service: 10/18/16 Principal diagnosis: Atypical chest pain Interval history: No more chest pain. For cardiac cath today Objective - Constitutional Vitals: Vital Signs - 12hr 10/18/16 10/18/16 10/18/16 00:30 03:10 04:25 Temperature 98.3 F 98.0 F Pulse Rate 49 L Pulse Rate [ 80 87 Right Dorsalis Pedis] Pulse Rate [ Right Radial] Respiratory 18 20 Rate Blood Pressure Blood Pressure 142/76 159/89 [Left Arm] O2 Sat by Pulse 100 100 Oximetry 10/18/16 10/18/16 10/18/16 06:06 06:11 09:12 Temperature 97.9 F 98.0 F Pulse Rate 54 L Pulse Rate [ 54 L Right Dorsalis Pedis] Pulse Rate [ 51 L Right Radial] Respiratory 18 18 Rate Blood Pressure 137/86 Blood Pressure 137/86 154/80 [Left Arm] O2 Sat by Pulse 98 98 Oximetry General appearance: Present: no acute distress, well-nourished - EENT Eyes: PERRL, EOM intact - Neck Neck: supple, normal ROM - Respiratory Respiratory effort: normal Respiratory: bilateral: CTA - Cardiovascular Rhythm: regular Heart Sounds: Present: S1 & S2. Absent: gallop, rub Extremities: pulses intact, No edema, normal color, Full ROM - Gastrointestinal General gastrointestinal: Present: soft, non-tender, non-distended, normal bowel sounds - Integumentary Integumentary: clear, warm, dry - Musculoskeletal Musculoskeletal: 1, strength equal bilaterally - Neurologic Neurologic: moves all extremities - Psychiatric Psychiatric: memory intact, appropriate mood/affect, intact judgment & insight - Labs CBC & Chem 7: 10/16/16 05:21 10/16/16 05:21
[2016-10-18] MEDS ORDERED: HEPARIN 10,000 UNITS/10 ML ONE (12:44)
[2016-10-18] MEDS: SUBLIMAZE ONE ×2 (12:57→13:17)
[2016-10-18] MEDS: VERSED ONE ×2 (12:58→13:17)
[2016-10-18] MEDS: XYLOCAINE 2% INFILTRATI ONE ×2 (12:58→13:18)
[2016-10-18] MEDS: HEPARIN/NS 5000 UNIT/500ML(CATH LAB) 1,000 ML IR ONE ×2 (12:59→13:15)
[2016-10-18] MEDS: LOVENOX SUB-Q SCH ×2 (15:22→22:31)
[2016-10-18] MEDS: LOPRESSOR PO SCH (15:23)
--- NOTE | 2016-10-18 16:31 | Progress Note ---
Assessment and Plan - Patient Problems (1) Nonischemic cardiomyopathy Current Visit: Yes Status: Acute Plan to address problem: Cardiac catheterization done today, demonstrates essentially angiographically normal coronary arteries, but a dilated cardiomyopathy, severe left ventricle systolic dysfunction, ejection fraction approximately 20-25%. Recommendations: Medical therapy for nonischemic cardiomyopathy with lisinopril, carvedilol and oral antiplatelet therapy. Subjective Date of service: 10/18/16 Principal diagnosis: Atypical chest pain Interval history: Cardiac catheterization done today, demonstrates essentially angiographically normal coronary arteries, but a dilated cardiomyopathy, severe left ventricle systolic dysfunction, ejection fraction approximately 20-25%. Objective Vital Signs Temp Pulse Pulse Pulse Pulse Resp BP 10/18/16 16:00 97.6 F 51 L 18 10/18/16 15:23 139/77 10/18/16 15:21 139/71 10/18/16 10:00 53 L 10/18/16 09:12 98.0 F 51 L 18 10/18/16 06:11 54 L 137/86 10/18/16 06:06 97.9 F 54 L 18 10/18/16 04:25 98.0 F 87 20 10/18/16 03:10 49 L 10/18/16 00:30 98.3 F 80 18 10/17/16 21:02 98.1 F 84 18 10/17/16 18:37 98.8 F 53 L 16 BP Pulse Ox 10/18/16 16:00 147/78 10/18/16 15:23 10/18/16 15:21 10/18/16 10:00 10/18/16 09:12 154/80 98 10/18/16 06:11 10/18/16 06:06 137/86 98 10/18/16 04:25 159/89 100 10/18/16 03:10 10/18/16 00:30 142/76 100 10/17/16 21:02 148/72 99 10/17/16 18:37 145/69 99 - Physical Examination General: No Apparent Distress HEENT: Positive: PERRL, EOMI Neck: Positive: neck supple, trachea midline Cardiac: Positive: Reg Rate and Rhythm Lungs: Positive: Decreased Breath Sounds Neuro: Positive: Grossly Intact Abdomen: Positive: Soft, Active Bowel Sounds Skin: Positive: Clear Extremities: Present: normal. Absent: edema - EKG Sinus rhythms and dysrhythmias: sinus rhythm (sinus rhythm with nonspecific sttw changes)
--- NOTE | 2016-10-18 17:13 | Event Note ---
Date: 10/18/16 We are notified of a short burst of asymptomatic nonsustained ventricular tachycardia on patient's telemetry at 1540 hrs. In response to asymptomatic nonsustained ventricular tachycardia, will recommend optimizing beta jeniffer therapy, in addition to optimizing electrolyte abnormalities. We will check potassium and magnesium levels.
--- NOTE | 2016-10-18 17:56 | Cardiac Catherization Report ---
REASON FOR PROCEDURE: Abnormal thallium stress test. PROCEDURE: Left heart catheterization with coronary angiography. DETAILS OF THE PROCEDURE: The patient was prepped and draped in a sterile fashion after informed consent. The right femoral artery was entered using Seldinger technique followed by placement of a 6-Occitan sheath. Selective left and right coronary angiography was performed using #4 right and left Asher catheters. The pigtail catheter was used for left ventricle angiography. The catheters were removed, sheath removed, and hemostasis achieved using manual compression. The patient was returned to the Postprocedure Unit in stable condition. There were no complications. FINDINGS: HEMODYNAMICS: Left ventricle end-diastolic pressure was 26, following coronary angiography. Ascending aortic pressure 151/78. There was no significant pressure gradient on pullback across the aortic valve. CORONARY ANGIOGRAPHY: The left main coronary artery was without significant disease. The left anterior descending artery and its diagonal branches contained diffuse mild luminal irregularities. No significant obstructive lesions were noted in the LAD or diagonal branches. The circumflex artery and its obtuse marginal branches contained mild luminal irregularities. The right coronary artery was dominant, and similarly contained mild diffuse luminal irregularities. The left ventricle was moderately to severely dilated. There was severe left ventricular systolic dysfunction, diffuse hypokinesis, left ventricular ejection fraction 25%. CONCLUSION: 1. No significant obstructive coronary disease. 2. Dilated, nonischemic cardiomyopathy, severe left ventricular systolic dysfunction, ejection fraction 25%. RECOMMENDATION: 1. Medical therapy for nonischemic cardiomyopathy. 2. Risk factor modification. JOB# [id number] CA/NTS
[2016-10-18 19:13] LABS: Potassium 3.8 mmol/L (3.6-5.0)
[2016-10-18] MEDS: ZOCOR PO SCH (22:32)
[2016-10-18] MEDS: COREG PO SCH (22:32)
--- NOTE | 2016-10-18 22:53 | Treadmill Report ---
THALLIUM STRESS TEST LEFT VENTRICLE: Left ventricular chamber size is within normal limits. Perfusion study demonstrated a small, mostly fixed basal inferior defect. On the resting study, there is a minimal degree of reversibility. Gated analysis suggests at least moderate left ventricular systolic dysfunction, ejection fraction 35%. CONCLUSION: Small mostly fixed basal inferior defect, cannot exclude a very mild degree of reversible ischemia. Clinical correlation is recommended. Gated analysis demonstrates evidence of possible moderate left ventricular systolic dysfunction, recommend echocardiographic reassessment of left ventricular size and systolic function. [facility]# [id number] CA/NTS
[2016-10-19] MEDS: ZOVIRAX PO SCH ×3 (05:31→22:08)
--- NOTE | 2016-10-19 10:18 | Discharge Summary ---
Providers - Providers Date of Admission: 10/16/16 09:26 Date of discharge: 10/25/16 Attending physician: KATHI FIGUEROA 10/18/16 16:25 Consult to Cardiac Rehabilitation [CONS] Routine Reason For Exam: Cardiac Rehab Evaluation Primary care physician: PRESIDENT Hospitalization Condition: Stable Hospital course: The patient states he presented to the ER with c/o chest pain. He described a dull ache in the substernal region which lasted for 2 hours, without radiation, constant. Patient has never had chest pain before. Patient denies SOB, peripheral edema, orhtopnea, pnd, palpitations, dizziness or syncope. Discharge diagnosis and management: Atypical Chest pain. - likely from cardiomyopathy - Stress test showed nonreversible apical defect. - s/p LHC showed normal coronaries - On Metoprolol, Lisinopril, Aspirin and Atorvastatin Hypertension. - BP is better controlled with Metoprolol and Lisinopril . - cont current meds Hyperlipidemia. -On statins. Nonischemic cardiomyopathy with EF 20-25% -Status post cardiac cath during this admission with normal coronary arteries -Medical management per cardiology - On Metoprolol, Lisinopril, Aspirin and Atorvastatin Nonsustained Vtech - monitored with tele - started on metoprolol - cardiology recommended life vest on d/c which denied by insurance, - will f/u with Dr. Bell outpt Disposition: DISCHARGED TO HOME OR SELFCARE Time spent for discharge: 32 minutes Core Measure Documentation - Palliative Care Palliative Care/ Comfort Measures: Not Applicable - Core Measures Any of the following diagnoses?: heart failure - Heart Failure Discharge Requirements SHARYN/ARB for LVSD if EF <40%: Yes Beta jeniffer at discharge: Yes Exam - Physical Exam Narrative exam: GENERAL: well-developed and well-nourished lying on bed appeared to be in no discomfort. HEENT: Normocephalic. Atraumatic. No conjunctival congestion or icterus. Patient has moist mucous membranes. NECK: Supple. Trachea midline. CHEST/LUNGS: Clear to auscultated bilaterally, breathing nonlabored. No wheezes crackles or rhonchi. HEART/CARDIOVASCULAR: Regular in rate and rhythm. S1 and S2 positive. ABDOMEN: Abdomen is soft, nontender. Patient has normal bowel sounds. SKIN: There is no rash. Warm and dry. NEURO: No focal motor deficit. Follows command. MUSCULOSKELETAL: No joint effusion or tenderness. EXTRIMITY: No edema, no cyanosis or clubbing. PSYCH: Cooperative. - Constitutional Vitals: Temp Pulse Resp BP Pulse Ox 98.1 F 61 16 148/79 98 10/19/16 09:30 10/19/16 09:30 10/19/16 09:30 10/19/16 09:30 10/19/16 09:30 Plan Activity: advance as tolerated Weight Bearing Status: Non-Weight Bearing Diet: low cholesterol, low salt Follow up with: DAGO ZEPEDA MD [Staff Physician] - 7 Days PRIMARY CAREMD [Primary Care Provider] - 3-5 Days Prescriptions: Aspirin [Aspirin BABY CHEW TAB] 81 mg PO QDAY #30 tab.chew Carvedilol [Coreg] 12.5 mg PO BID #60 tablet Lisinopril [Zestril TAB] 10 mg PO BID #30 tablet
[2016-10-19] MEDS: LOVENOX SUB-Q SCH ×2 (10:33→22:08)
[2016-10-19] MEDS: ECOTRIN PO SCH (10:33)
[2016-10-19] MEDS: ZESTRIL PO SCH ×2 (10:33→22:06)
[2016-10-19] MEDS: COREG PO SCH ×2 (10:33→22:07)
--- NOTE | 2016-10-19 15:16 | Progress Note ---
Assessment and Plan Atypical Chest pain. - Stress test showed nonreversible apical defect. - s/p LHC showed normal coronaries -On Metoprolol, Lisinopril, Aspirin and Atorvastatin Hypertension. - BP is better controlled. - cont current meds Hyperlipidemia. -On statins. Nonischemic cardiomyopathy with EF 20-25% -Status post cardiac cath with normal coronary arteries -Medical management per cardiology Nonsustained Vtech - cont metoprolol - cardiology recommended life vest on d/c Subjective Date of service: 10/19/16 Principal diagnosis: Atypical chest pain Interval history: Pt seen and examined denies any chest pain No arrythmia o/n cardiology recommended life vest on discharge Objective - Exam Narrative Exam: GENERAL: AAM sitting on bed appeared to be in no discomfort. HEENT: Normocephalic. Atraumatic. No conjunctival congestion or icterus. Patient has moist mucous membranes. NECK: Supple. Trachea midline. CHEST/LUNGS: Clear to auscultated bilaterally, breathing nonlabored. No wheezes crackles or rhonchi. HEART/CARDIOVASCULAR: Regular in rate and rhythm. S1 and S2 positive. ABDOMEN: Abdomen is soft, nontender. Patient has normal bowel sounds. SKIN: There is no rash. Warm and dry. NEURO: No focal motor deficit. Follows command. MUSCULOSKELETAL: No joint effusion or tenderness. EXTRIMITY: No edema, no cyanosis or clubbing. PSYCH: Cooperative. - Constitutional Vitals: Vital Signs - 12hr 10/19/16 10/19/16 10/19/16 05:06 08:55 09:30 Temperature 98.6 F 98.9 F 98.1 F Pulse Rate Pulse Rate [ 68 Left] Pulse Rate [ 55 L Right Dorsalis Pedis] Pulse Rate [ 61 Right Radial] Respiratory 18 18 16 Rate Blood Pressure Blood Pressure 141/68 [Left Arm] Blood Pressure 130/73 148/79 [Right Radial Artery] O2 Sat by Pulse 98 98 98 Oximetry 10/19/16 10/19/16 10:33 10:37 Temperature Pulse Rate 61 Pulse Rate [ 61 Left] Pulse Rate [ Right Dorsalis Pedis] Pulse Rate [ Right Radial] Respiratory 20 Rate Blood Pressure 148/79 Blood Pressure [Left Arm] Blood Pressure [Right Radial Artery] O2 Sat by Pulse Oximetry - Labs CBC & Chem 7: 10/16/16 05:21 10/18/16 17:35
--- NOTE | 2016-10-19 16:30 | Progress Note ---
Assessment and Plan Chest pain, atypical LHC demonstrated normal coronaries but a reduced EF of 20-25% Hypertension asymptomatic nonsustained ventricular tachycardia no reoccurrence overnight Recommend: A lifevest for primary prevention, before discharge. Once discharge, f/u with Dr Bell with [facility], November 02 at 1020a. Subjective Date of service: 10/19/16 Principal diagnosis: Atypical chest pain Interval history: Patient has no complaints. No reported events on telemetry overnight. Objective Vital Signs Temp Pulse Pulse Pulse Pulse Resp Resp 10/19/16 10:37 61 20 10/19/16 10:33 61 10/19/16 09:30 98.1 F 61 16 10/19/16 08:55 98.9 F 68 18 10/19/16 05:06 98.6 F 55 L 18 10/19/16 01:15 97.6 F 65 20 10/18/16 22:32 55 L 10/18/16 22:30 55 L 10/18/16 22:00 57 L 55 L 18 10/18/16 21:41 20 10/18/16 20:20 98.6 F 55 L 18 BP BP BP Pulse Ox 10/19/16 10:37 10/19/16 10:33 148/79 10/19/16 09:30 148/79 98 10/19/16 08:55 130/73 98 10/19/16 05:06 141/68 98 10/19/16 01:15 148/85 97 10/18/16 22:32 141/68 10/18/16 22:30 141/68 10/18/16 22:00 10/18/16 21:41 10/18/16 20:20 141/68 98 - Physical Examination General: No Apparent Distress HEENT: Positive: PERRL Neck: Positive: trachea midline Cardiac: Positive: Reg Rate and Rhythm Lungs: Positive: Decreased Breath Sounds Neuro: Positive: Grossly Intact Extremities: Present: normal. Absent: edema - Labs and Meds Comprehensive Metabolic Panel 10/18/16 Range/Units 17:35 Potassium 3.8 (3.6-5.0) mmol/L - EKG Sinus rhythms and dysrhythmias: sinus rhythm (sinus rhythm with nonspecific sttw changes)
[2016-10-19] MEDS: ZOCOR PO SCH (22:06)
[2016-10-20] MEDS: ZOVIRAX PO SCH ×3 (08:02→21:59)
[2016-10-20] MEDS: COREG PO SCH ×2 (09:34→21:59)
[2016-10-20] MEDS: ZESTRIL PO SCH ×2 (09:34→21:59)
[2016-10-20] MEDS: ECOTRIN PO SCH (09:34)
[2016-10-20] MEDS: LOVENOX SUB-Q SCH ×2 (09:35→22:00)
--- NOTE | 2016-10-20 11:28 | Progress Note ---
Assessment and Plan Chest pain, atypical LHC demonstrated normal coronaries but a reduced EF of 20-25% Hypertension asymptomatic short burst of wide complex tachycardia likely nonsustained ventricular tachycardia no reoccurrence overnight Recommend: Continue medical therapy for nonischemic cardiomyopathy. A lifevest for primary prevention, prior to discharge. Once discharge, f/u with Dr Bell with [facility], November 02 at 1020a. Subjective Date of service: 10/20/16 Principal diagnosis: Atypical chest pain Interval history: No events on telemetry overnight. Awaits lifevest placement. Objective Vital Signs Temp Pulse Pulse Pulse Pulse Pulse Resp 10/20/16 09:34 52 L 10/20/16 07:50 98.5 F 52 L 18 10/20/16 01:40 97.6 F 56 L 18 10/19/16 22:14 97.9 F 53 L 51 L 18 10/19/16 22:07 53 L 10/19/16 22:06 53 L 10/19/16 16:52 98.8 F 55 L 16 10/19/16 15:10 97.9 F 55 L 16 10/19/16 10:37 61 20 10/19/16 10:33 61 BP BP BP Pulse Ox 10/20/16 09:34 136/80 10/20/16 07:50 136/80 95 10/20/16 01:40 160/74 93 10/19/16 22:14 153/83 97 10/19/16 22:07 153/83 10/19/16 22:06 153/83 10/19/16 16:52 154/86 98 10/19/16 15:10 154/86 98 10/19/16 10:37 10/19/16 10:33 148/79 - Physical Examination General: No Apparent Distress HEENT: Positive: PERRL Neck: Positive: trachea midline Cardiac: Positive: Reg Rate and Rhythm Lungs: Positive: Wheezes Neuro: Positive: Grossly Intact Extremities: Absent: edema - EKG Sinus rhythms and dysrhythmias: sinus rhythm (sinus rhythm with nonspecific sttw changes)
--- NOTE | 2016-10-20 15:37 | Progress Note ---
Assessment and Plan Atypical Chest pain. - Stress test showed nonreversible apical defect. - s/p LHC showed normal coronaries - On Metoprolol, Lisinopril, Aspirin and Atorvastatin Hypertension. - BP is better controlled. - cont current meds Hyperlipidemia. -On statins. Nonischemic cardiomyopathy with EF 20-25% -Status post cardiac cath with normal coronary arteries -Medical management per cardiology Nonsustained Vtech - cont metoprolol - cardiology recommended life vest on d/c Disposition: When life vest approves by insurance. Subjective Date of service: 10/20/16 Principal diagnosis: Atypical chest pain Interval history: Pt seen and examined denies any chest pain No arrythmia o/n cardiology recommended life vest on discharge Objective - Exam Narrative Exam: GENERAL: well-developed and well-nourished lying on bed appeared to be in no discomfort. HEENT: Normocephalic. Atraumatic. No conjunctival congestion or icterus. Patient has moist mucous membranes. NECK: Supple. Trachea midline. CHEST/LUNGS: Clear to auscultated bilaterally, breathing nonlabored. No wheezes crackles or rhonchi. HEART/CARDIOVASCULAR: Regular in rate and rhythm. S1 and S2 positive. ABDOMEN: Abdomen is soft, nontender. Patient has normal bowel sounds. SKIN: There is no rash. Warm and dry. NEURO: No focal motor deficit. Follows command. MUSCULOSKELETAL: No joint effusion or tenderness. EXTRIMITY: No edema, no cyanosis or clubbing. PSYCH: Cooperative. - Constitutional Vitals: Vital Signs - 12hr 10/20/16 10/20/16 10/20/16 07:50 09:34 10:00 Temperature 98.5 F Pulse Rate 52 L 52 L Pulse Rate [ Left Radial] Pulse Rate [ 52 L Right Radial] Respiratory 18 18 Rate Blood Pressure 136/80 Blood Pressure [Left Arm] Blood Pressure 136/80 [Right Radial Artery] O2 Sat by Pulse 95 Oximetry 10/20/16 11:05 Temperature 98.5 F Pulse Rate Pulse Rate [ 54 L Left Radial] Pulse Rate [ Right Radial] Respiratory 18 Rate Blood Pressure Blood Pressure 126/80 [Left Arm] Blood Pressure [Right Radial Artery] O2 Sat by Pulse 99 Oximetry - Labs CBC & Chem 7: 10/16/16 05:21 10/18/16 17:35
[2016-10-20] MEDS: ZOCOR PO SCH (21:59)
[2016-10-21] MEDS: ZOVIRAX PO SCH ×3 (06:21→23:02)
[2016-10-21] MEDS: ECOTRIN PO SCH (10:32)
[2016-10-21] MEDS: ZESTRIL PO SCH ×2 (10:32→23:02)
[2016-10-21] MEDS: LOVENOX SUB-Q SCH ×2 (10:32→23:03)
[2016-10-21] MEDS: COREG PO SCH ×2 (10:33→23:01)
--- NOTE | 2016-10-21 11:35 | Progress Note ---
Assessment and Plan Chest pain, atypical LHC demonstrated normal coronaries but a reduced EF of 20-25% Hypertension asymptomatic short burst of wide complex tachycardia likely nonsustained ventricular tachycardia no reoccurrence Recommend: Continue medical therapy for nonischemic cardiomyopathy. A lifevest for primary prevention, prior to discharge. Once discharge, f/u with Dr Bell with [facility], November 02 at 1020a. Subjective Date of service: 10/21/16 Principal diagnosis: Atypical chest pain Interval history: No events on telemetry overnight. Awaits insurance approval for lifevest placement. Objective Vital Signs Temp Pulse Pulse Pulse Pulse Resp BP 10/21/16 10:33 60 142/72 10/21/16 10:32 60 142/72 10/21/16 09:40 98.6 F 57 L 18 10/21/16 04:00 97.6 F 54 L 18 10/21/16 00:00 98.3 F 66 18 10/20/16 22:00 54 L 10/20/16 21:59 57 L 152/81 10/20/16 20:00 98.1 F 58 L 18 10/20/16 16:20 98.3 F 52 L 18 BP Pulse Ox 10/21/16 10:33 10/21/16 10:32 10/21/16 09:40 142/72 98 10/21/16 04:00 133/71 98 10/21/16 00:00 146/78 100 10/20/16 22:00 10/20/16 21:59 10/20/16 20:00 152/81 100 10/20/16 16:20 139/77 98 - Physical Examination General: No Apparent Distress HEENT: Positive: PERRL Neck: Positive: trachea midline Cardiac: Positive: Reg Rate and Rhythm Lungs: Positive: Decreased Breath Sounds Neuro: Positive: Grossly Intact Extremities: Absent: edema - EKG Sinus rhythms and dysrhythmias: sinus rhythm (sinus rhythm with nonspecific sttw changes)
[2016-10-21] MEDS: ZOCOR PO SCH (23:02)
[2016-10-22] MEDS: ZOVIRAX PO SCH ×3 (06:32→21:40)
--- NOTE | 2016-10-22 08:59 | Progress Note ---
Assessment and Plan Atypical Chest pain. - Stress test showed nonreversible apical defect. - s/p LHC showed normal coronaries - On Metoprolol, Lisinopril, Aspirin and Atorvastatin Hypertension. - BP is better controlled. - cont current meds Hyperlipidemia. -On statins. Nonischemic cardiomyopathy with EF 20-25% -Status post cardiac cath with normal coronary arteries -Medical management per cardiology Nonsustained Vtech - cont metoprolol - cardiology recommended life vest on d/c Disposition: When life vest approves by insurance. Subjective Date of service: 10/21/16 Principal diagnosis: Atypical chest pain Interval history: Pt seen and examined denies any chest pain No arrythmia o/n cardiology recommended life vest on discharge Objective - Exam Narrative Exam: GENERAL: well-developed and well-nourished lying on bed appeared to be in no discomfort. HEENT: Normocephalic. Atraumatic. No conjunctival congestion or icterus. Patient has moist mucous membranes. NECK: Supple. Trachea midline. CHEST/LUNGS: Clear to auscultated bilaterally, breathing nonlabored. No wheezes crackles or rhonchi. HEART/CARDIOVASCULAR: Regular in rate and rhythm. S1 and S2 positive. ABDOMEN: Abdomen is soft, nontender. Patient has normal bowel sounds. SKIN: There is no rash. Warm and dry. NEURO: No focal motor deficit. Follows command. MUSCULOSKELETAL: No joint effusion or tenderness. EXTRIMITY: No edema, no cyanosis or clubbing. PSYCH: Cooperative. - Constitutional Vitals: Vital Signs - 12hr 10/21/16 10/21/16 10/21/16 21:50 23:01 23:02 Temperature 98.0 F Pulse Rate 52 L 52 L Pulse Rate [ Right Dorsalis Pedis] Pulse Rate [ 52 L Right Radial] Respiratory 20 Rate Blood Pressure 159/78 159/78 Blood Pressure 159/78 [Right Radial Artery] O2 Sat by Pulse 98 Oximetry 10/22/16 10/22/16 00:36 04:53 Temperature 98.1 F 97.6 F Pulse Rate Pulse Rate [ 49 L 65 Right Dorsalis Pedis] Pulse Rate [ Right Radial] Respiratory 20 18 Rate Blood Pressure Blood Pressure 164/86 164/83 [Right Radial Artery] O2 Sat by Pulse 99 96 Oximetry - Labs CBC & Chem 7: 10/16/16 05:21 10/18/16 17:35
[2016-10-22] MEDS: ZESTRIL PO SCH ×2 (09:40→21:40)
[2016-10-22] MEDS: ECOTRIN PO SCH (09:41)
[2016-10-22] MEDS: LOVENOX SUB-Q SCH ×2 (09:41→21:42)
[2016-10-22] MEDS: COREG PO SCH ×2 (09:41→21:41)
--- NOTE | 2016-10-22 10:13 | Progress Note ---
Assessment and Plan Chest pain, atypical LHC demonstrated normal coronaries but a reduced EF of 20-25% Hypertension asymptomatic short burst of wide complex tachycardia likely nonsustained ventricular tachycardia no reoccurrence Recommend: Continue medical therapy for nonischemic cardiomyopathy. A lifevest for primary prevention, prior to discharge. Once discharge, f/u with Dr Bell with [facility], November 02 at 1020a. Will sign off Subjective Date of service: 10/22/16 Principal diagnosis: Atypical chest pain Interval history: Patient has no complaints this morning Objective Vital Signs Temp Pulse Pulse Pulse Pulse Pulse Resp 10/22/16 09:41 62 10/22/16 09:40 63 10/22/16 08:29 99 F 59 L 18 10/22/16 04:53 97.6 F 65 18 10/22/16 00:36 98.1 F 49 L 20 10/21/16 23:02 52 L 10/21/16 23:01 52 L 10/21/16 21:50 98.0 F 52 L 20 10/21/16 17:54 98.0 F 52 L 18 10/21/16 10:33 60 10/21/16 10:32 60 BP BP BP Pulse Ox 10/22/16 09:41 163/62 10/22/16 09:40 163/62 10/22/16 08:29 140/75 94 10/22/16 04:53 164/83 96 10/22/16 00:36 164/86 99 10/21/16 23:02 159/78 10/21/16 23:01 159/78 10/21/16 21:50 159/78 98 10/21/16 17:54 148/67 98 10/21/16 10:33 142/72 10/21/16 10:32 142/72 - Physical Examination General: No Apparent Distress HEENT: Positive: PERRL Neck: Positive: trachea midline Cardiac: Positive: Reg Rate and Rhythm Lungs: Positive: Normal Exam Neuro: Positive: Grossly Intact Abdomen: Positive: Soft, Active Bowel Sounds Skin: Positive: Clear Extremities: Absent: edema - EKG Sinus rhythms and dysrhythmias: sinus rhythm (sinus rhythm with nonspecific sttw changes)
[2016-10-22] MEDS: ZOCOR PO SCH (21:41)
[2016-10-22] MEDS ORDERED: THORAZINE PO ONE (22:20)
--- NOTE | 2016-10-23 01:20 | Progress Note ---
Assessment and Plan Atypical Chest pain. - Stress test showed nonreversible apical defect. - s/p LHC showed normal coronaries - On Metoprolol, Lisinopril, Aspirin and Atorvastatin Hypertension. - BP is better controlled. - cont current meds Hyperlipidemia. -On statins. Nonischemic cardiomyopathy with EF 20-25% -Status post cardiac cath with normal coronary arteries -Medical management per cardiology Nonsustained Vtech - cont metoprolol - cardiology recommended life vest on d/c which denied by insurance, CM notified Disposition: When life vest could be arranged. Subjective Date of service: 10/22/16 Principal diagnosis: Atypical chest pain Interval history: Pt seen and examined denies any chest pain No arrythmia o/n cardiology recommended life vest on discharge Objective - Exam Narrative Exam: GENERAL: well-developed and well-nourished lying on bed appeared to be in no discomfort. HEENT: Normocephalic. Atraumatic. No conjunctival congestion or icterus. Patient has moist mucous membranes. NECK: Supple. Trachea midline. CHEST/LUNGS: Clear to auscultated bilaterally, breathing nonlabored. No wheezes crackles or rhonchi. HEART/CARDIOVASCULAR: Regular in rate and rhythm. S1 and S2 positive. ABDOMEN: Abdomen is soft, nontender. Patient has normal bowel sounds. SKIN: There is no rash. Warm and dry. NEURO: No focal motor deficit. Follows command. MUSCULOSKELETAL: No joint effusion or tenderness. EXTRIMITY: No edema, no cyanosis or clubbing. PSYCH: Cooperative. - Constitutional Vitals: Vital Signs - 12hr 10/22/16 10/22/16 10/23/16 18:02 19:39 00:48 Temperature 97.3 F L 98.7 F 98.4 F Pulse Rate [ 59 L Left Radial] Pulse Rate [ 55 L 54 L Right Dorsalis Pedis] Respiratory 18 20 18 Rate Blood Pressure 141/69 [Left Arm] Blood Pressure 139/71 144/78 [Right Radial Artery] O2 Sat by Pulse 97 98 99 Oximetry - Labs CBC & Chem 7: 10/16/16 05:21 10/18/16 17:35
[2016-10-23] MEDS: ZOVIRAX PO SCH ×3 (06:19→22:31)
[2016-10-23] MEDS: ZESTRIL PO SCH ×2 (10:18→22:32)
[2016-10-23] MEDS: ECOTRIN PO SCH (10:18)
[2016-10-23] MEDS: LOVENOX SUB-Q SCH ×2 (10:18→22:36)
[2016-10-23] MEDS: COREG PO SCH ×2 (10:19→22:32)
--- NOTE | 2016-10-23 16:59 | Progress Note ---
Assessment and Plan Atypical Chest pain. - Stress test showed nonreversible apical defect. - s/p LHC showed normal coronaries - On Metoprolol, Lisinopril, Aspirin and Atorvastatin Hypertension. - BP is better controlled. - cont current meds Hyperlipidemia. -On statins. Nonischemic cardiomyopathy with EF 20-25% -Status post cardiac cath with normal coronary arteries -Medical management per cardiology Nonsustained Vtech - cont metoprolol - cardiology recommended life vest on d/c which denied by insurance, CM notified Disposition: When life vest could be arranged. Subjective Date of service: 10/23/16 Principal diagnosis: Atypical chest pain Interval history: Pt seen and examined denies any chest pain cardiology recommended life vest on discharge, but denied by insurance discussed plan of care with pt and his Son. Objective - Exam Narrative Exam: GENERAL: well-developed and well-nourished lying on bed appeared to be in no discomfort. HEENT: Normocephalic. Atraumatic. No conjunctival congestion or icterus. Patient has moist mucous membranes. NECK: Supple. Trachea midline. CHEST/LUNGS: Clear to auscultated bilaterally, breathing nonlabored. No wheezes crackles or rhonchi. HEART/CARDIOVASCULAR: Regular in rate and rhythm. S1 and S2 positive. ABDOMEN: Abdomen is soft, nontender. Patient has normal bowel sounds. SKIN: There is no rash. Warm and dry. NEURO: No focal motor deficit. Follows command. MUSCULOSKELETAL: No joint effusion or tenderness. EXTRIMITY: No edema, no cyanosis or clubbing. PSYCH: Cooperative. - Constitutional Vitals: Vital Signs - 12hr 10/23/16 10/23/16 10/23/16 08:45 10:00 10:18 Temperature 97.8 F Pulse Rate 48 L 54 L Pulse Rate [ 54 L Left Radial] Respiratory 18 Rate Blood Pressure 113/61 Blood Pressure 113/61 [Left Arm] O2 Sat by Pulse 98 Oximetry - Labs CBC & Chem 7: 10/16/16 05:21 10/18/16 17:35
--- NOTE | 2016-10-23 16:59 | Progress Note ---
Assessment and Plan Atypical Chest pain. - Stress test showed nonreversible apical defect. - s/p LHC showed normal coronaries - On Metoprolol, Lisinopril, Aspirin and Atorvastatin Hypertension. - BP is better controlled. - cont current meds Hyperlipidemia. -On statins. Nonischemic cardiomyopathy with EF 20-25% -Status post cardiac cath with normal coronary arteries -Medical management per cardiology Nonsustained Vtech - cont metoprolol - cardiology recommended life vest on d/c which denied by insurance, CM notified Disposition: When life vest could be arranged. Subjective Date of service: 10/22/16 Principal diagnosis: Atypical chest pain Interval history: Pt seen and examined denies any chest pain No arrythmia o/n cardiology recommended life vest on discharge Objective - Exam Narrative Exam: GENERAL: well-developed and well-nourished lying on bed appeared to be in no discomfort. HEENT: Normocephalic. Atraumatic. No conjunctival congestion or icterus. Patient has moist mucous membranes. NECK: Supple. Trachea midline. CHEST/LUNGS: Clear to auscultated bilaterally, breathing nonlabored. No wheezes crackles or rhonchi. HEART/CARDIOVASCULAR: Regular in rate and rhythm. S1 and S2 positive. ABDOMEN: Abdomen is soft, nontender. Patient has normal bowel sounds. SKIN: There is no rash. Warm and dry. NEURO: No focal motor deficit. Follows command. MUSCULOSKELETAL: No joint effusion or tenderness. EXTRIMITY: No edema, no cyanosis or clubbing. PSYCH: Cooperative. - Constitutional Vitals: Vital Signs - 12hr 10/23/16 10/23/16 10/23/16 08:45 10:00 10:18 Temperature 97.8 F Pulse Rate 48 L 54 L Pulse Rate [ 54 L Left Radial] Respiratory 18 Rate Blood Pressure 113/61 Blood Pressure 113/61 [Left Arm] O2 Sat by Pulse 98 Oximetry - Labs CBC & Chem 7: 10/16/16 05:21 10/18/16 17:35
[2016-10-23] MEDS: THORAZINE PO PRN (20:18)
[2016-10-23] MEDS: ZOCOR PO SCH (22:32)
[2016-10-24] MEDS: ZOVIRAX PO SCH ×3 (06:03→22:52)
--- NOTE | 2016-10-24 09:35 | Progress Note ---
Subjective Date of service: 10/24/16 Principal diagnosis: Atypical chest pain Interval history: Lifevest denied by insurance, he denies any complaints this AM Chest pain, atypical LHC demonstrated normal coronaries but a reduced EF of 20-25% Hypertension asymptomatic short burst of wide complex tachycardia likely nonsustained ventricular tachycardia no reoccurrence Recommend: Continue medical therapy for nonischemic cardiomyopathy. A lifevest for primary prevention, prior to discharge. He has had NSVT while hospitalized. will keep in hospital until Tuesday, discuss with EP and revisit insurance issue prior to discharge Objective Vital Signs Temp Pulse Pulse Pulse Resp BP BP 10/24/16 07:35 98.5 F 50 L 18 119/66 10/24/16 04:00 98.6 F 55 L 18 10/24/16 00:00 97.8 F 56 L 18 10/23/16 20:00 98.6 F 51 L 18 10/23/16 17:45 98.0 F 54 L 18 132/66 10/23/16 10:18 54 L 113/61 10/23/16 10:00 48 L BP Pulse Ox 10/24/16 07:35 97 10/24/16 04:00 131/64 100 10/24/16 00:00 133/73 96 10/23/16 20:00 129/68 98 10/23/16 17:45 97 10/23/16 10:18 10/23/16 10:00 - Physical Examination General: No Apparent Distress HEENT: Positive: PERRL Neck: Positive: trachea midline Cardiac: Positive: Reg Rate and Rhythm, S1/S2 Lungs: Positive: Normal Exam Neuro: Positive: Grossly Intact Abdomen: Positive: Soft, Active Bowel Sounds Skin: Positive: Clear Extremities: Absent: edema - EKG Sinus rhythms and dysrhythmias: sinus rhythm (sinus rhythm with nonspecific sttw changes)
[2016-10-24] MEDS: COREG PO SCH ×2 (10:46→22:53)
[2016-10-24] MEDS: ECOTRIN PO SCH (11:12)
[2016-10-24] MEDS: LOVENOX SUB-Q SCH ×2 (11:12→22:52)
[2016-10-24] MEDS: ZESTRIL PO SCH ×2 (11:14→22:52)
--- NOTE | 2016-10-24 15:22 | Progress Note ---
Assessment and Plan Atypical Chest pain. - Stress test showed nonreversible apical defect. - s/p LHC showed normal coronaries - On Metoprolol, Lisinopril, Aspirin and Atorvastatin Hypertension. - BP is better controlled. - cont current meds Hyperlipidemia. -On statins. Nonischemic cardiomyopathy with EF 20-25% -Status post cardiac cath with normal coronary arteries -Medical management per cardiology Nonsustained Vtech - cont metoprolol - cardiology recommended life vest on d/c which denied by insurance, CM notified Disposition: When life vest could be arranged. Subjective Date of service: 10/24/16 Principal diagnosis: Atypical chest pain Interval history: Pt seen and examined denies any chest pain cardiology recommended life vest on discharge, but denied by insurance discussed plan of care with pt at bedside. Objective - Exam Narrative Exam: GENERAL: well-developed and well-nourished lying on bed appeared to be in no discomfort. HEENT: Normocephalic. Atraumatic. No conjunctival congestion or icterus. Patient has moist mucous membranes. NECK: Supple. Trachea midline. CHEST/LUNGS: Clear to auscultated bilaterally, breathing nonlabored. No wheezes crackles or rhonchi. HEART/CARDIOVASCULAR: Regular in rate and rhythm. S1 and S2 positive. ABDOMEN: Abdomen is soft, nontender. Patient has normal bowel sounds. SKIN: There is no rash. Warm and dry. NEURO: No focal motor deficit. Follows command. MUSCULOSKELETAL: No joint effusion or tenderness. EXTRIMITY: No edema, no cyanosis or clubbing. PSYCH: Cooperative. - Constitutional Vitals: Vital Signs - 12hr 10/24/16 10/24/16 10/24/16 04:00 07:35 10:46 Temperature 98.6 F 98.5 F Pulse Rate 50 L Pulse Rate [ Left Radial] Pulse Rate [ 55 L 50 L Right Radial] Respiratory 18 18 Rate Blood Pressure 119/66 Blood Pressure 119/66 [Left Arm] Blood Pressure 131/64 [Right Radial Artery] O2 Sat by Pulse 100 97 Oximetry 10/24/16 10/24/16 11:14 12:45 Temperature 98.5 F Pulse Rate 50 L Pulse Rate [ 52 L Left Radial] Pulse Rate [ Right Radial] Respiratory 20 Rate Blood Pressure 119/66 Blood Pressure [Left Arm] Blood Pressure 130/64 [Right Radial Artery] O2 Sat by Pulse Oximetry - Labs CBC & Chem 7: 10/16/16 05:21 10/18/16 17:35
[2016-10-24] MEDS: ZOCOR PO SCH (22:53)
[2016-10-24] MEDS: THORAZINE PO PRN (23:18)
[2016-10-25] MEDS: ZOVIRAX PO SCH (06:20)
[2016-10-25] MEDS: ZESTRIL PO SCH (09:59)
[2016-10-25] MEDS: COREG PO SCH (09:59)
[2016-10-25] MEDS: LOVENOX SUB-Q SCH (09:59)
[2016-10-25] MEDS: ECOTRIN PO SCH (09:59)
[2016-10-25 10:03] VITALS: BP 117/63
--- NOTE | 2016-10-25 10:32 | Progress Note ---
Assessment and Plan Chest pain, atypical LHC demonstrated normal coronaries but a reduced EF of 20-25% Hypertension asymptomatic short burst of wide complex tachycardia likely nonsustained ventricular tachycardia no reoccurrence on telemetry Lifevest denied by insurance. No indication for permanent ICD implant at this time. Recommend: Continue medical therapy for nonischemic cardiomyopathy. Ok for discharge home today. F/u with Dr Bell with [facility], November 02 at 1020a. Subjective Date of service: 10/25/16 Principal diagnosis: Atypical chest pain Interval history: No events on telemetry overnight. Objective Vital Signs Temp Pulse Pulse Pulse Pulse Resp Resp 10/25/16 09:59 52 L 10/25/16 08:00 98.9 F 57 L 16 10/25/16 05:28 98.2 F 52 L 18 10/25/16 00:21 97.6 F 48 L 20 10/24/16 22:53 53 L 10/24/16 22:52 53 L 10/24/16 22:00 55 L 18 10/24/16 20:57 18 10/24/16 19:52 98.6 F 53 L 18 10/24/16 19:16 53 L 10/24/16 15:55 98.6 F 54 L 20 10/24/16 12:45 98.5 F 52 L 20 10/24/16 11:14 50 L 10/24/16 10:46 50 L BP BP BP Pulse Ox 10/25/16 09:59 129/60 10/25/16 08:00 117/63 98 10/25/16 05:28 129/60 99 10/25/16 00:21 128/68 96 10/24/16 22:53 134/70 10/24/16 22:52 134/70 10/24/16 22:00 98 10/24/16 20:57 10/24/16 19:52 134/70 99 10/24/16 19:16 10/24/16 15:55 143/70 98 10/24/16 12:45 130/64 10/24/16 11:14 119/66 10/24/16 10:46 119/66 - Physical Examination General: No Apparent Distress HEENT: Positive: PERRL Neck: Positive: trachea midline Cardiac: Positive: Reg Rate and Rhythm Lungs: Positive: Decreased Breath Sounds Neuro: Positive: Grossly Intact Extremities: Absent: edema - EKG Sinus rhythms and dysrhythmias: sinus rhythm (sinus rhythm with nonspecific sttw changes)
== END 2016-10-25 14:12 | disposition home or self-care (01) | DRG 287 ==
LOC: ED 05:11 → 4A 09:26
PROVIDERS: ADMIT Internal Medicine; ATTEND Internal Medicine
PROC: 4A023N7 Measurement of Cardiac Sampling and Pressure, Left Heart, Percutaneous Approach (ICD-10-PCS; principal; 2016-10-18)
PROC: B2151ZZ Fluoroscopy of Left Heart using Low Osmolar Contrast (ICD-10-PCS; principal; 2016-10-18)
PROC: B2111ZZ Fluoroscopy of Multiple Coronary Arteries using Low Osmolar Contrast (ICD-10-PCS; principal; 2016-10-18)
DX: I42.9 Cardiomyopathy, unspecified (principal); I47.2 Ventricular tachycardia; R94.31 Abnormal electrocardiogram [ECG] [EKG]; I10 Essential (primary) hypertension; E78.00 Pure hypercholesterolemia, unspecified; E78.5 Hyperlipidemia, unspecified; Z87.442 Personal history of urinary calculi; Z90.49 Acquired absence of other specified parts of digestive tract; Z88.0 Allergy status to penicillin; Z91.010 Allergy to peanuts
CPT/HCPCS: 36415; 71010; 78452; 80048; 82550; 82553; 83735; 84132; 84484; 85025; 85610; 85730; 93005; 93010; 93017; 93306; 93458; A9270-GY; A9502; C1894; J1644; J1650; J2250; J2785; J3010; J7030; Q0161; Q9967

== ENCOUNTER 2017-01-31 07:55 | Outpatient (CLI) | payer BC, MEDICARE ==
--- NOTE | 2017-01-31 10:11 | Cat Scan Report ---
CT CHEST WITH AND WITHOUT CONTRAST CT ABDOMEN WITH AND WITHOUT CONTRAST INDICATION: Chronic singultus, bradycardia. COMPARISON: 05/19/[address] FINDINGS: Chest and abdomen CT performed before and after IV contrast. Oral contrast also given. CHEST: Few small right hilar and subcarinal lymph node calcifications. Normal heart size. No effusions or size significant adenopathy. Patent airway. Unremarkable great vessels and thyroid. Clear lungs. Nonspecific distal esophageal wall prominence/thickening, not excluded for gastroesophageal reflux and/or hiatal hernia, amongst others. ABDOMEN: Precontrast images demonstrate few small splenic calcified granulomas. Stable cholecystectomy clips. Multiple small nonobstructing bilateral renal calculi again noted, approximately 6-8 in number on either side, largest individual size approximately 3 mm as on the left, axial image 145, series 2. Post contrast images demonstrate otherwise unremarkable liver, spleen, pancreas, adrenals, aorta and IVC. Patent veins. Bilateral renal cortical hypodensities, some subcentimeter indeterminate while the largest 3.2 cm left lower renal cortical cyst posteriorly again noted, previously approximately 2 cm. Opacified small bowel nonobstructive. Normal appendix. Mild colonic stool, most along the ascending colon. Few descending colon diverticuli. Stable fat containing umbilical hernia with a transverse neck of 1.5 cm. Interval L4-L5 fusion hardware with advanced disc degeneration/narrowing with endplate irregularity and adjacent sclerosis with mild spurring again noted. Lower lumbar facet arthropathy, approximately 1.8 cm right iliac bone sclerotic focus and bilateral SI joint degenerative bridging with partial joint space obliteration again noted. Multilevel lower thoracic spondylosis, including spurring and disc degeneration also seen. Lower cervical spine degenerative changes may also be just imaged. CONCLUSION: 1. No acute CT abnormality with interval resolution of small pleural effusions since May 2010. 2. Interval lower lumbar fusion. 3. Various other stable incidental findings, including old healed granulomatous disease, distal esophageal thickening, cholecystectomy, diverticulosis, nonobstructing bilateral nephrolithiasis and renal hypodensities/cysts, amongst others, as detailed above. Thank you for the opportunity to participate in this patient's care.
== END 2017-01-31 07:56 | disposition home or self-care (01) ==
LOC: CT 07:55
DX: N20.0 Calculus of kidney (principal); N28.1 Cyst of kidney, acquired; K57.30 Diverticulosis of large intestine without perforation or abscess without bleeding; K42.9 Umbilical hernia without obstruction or gangrene; R06.6 Hiccough; R00.1 Bradycardia, unspecified; M12.88 Other specific arthropathies, not elsewhere classified, other specified site; M47.894 Other spondylosis, thoracic region; M47.892 Other spondylosis, cervical region; M43.26 Fusion of spine, lumbar region; I10 Essential (primary) hypertension; E78.00 Pure hypercholesterolemia, unspecified; Z90.49 Acquired absence of other specified parts of digestive tract
CPT/HCPCS: 71270; 74170; Q9967

== ENCOUNTER 2017-10-12 07:46 | Outpatient (CLI) | payer BC, MEDICARE ==
--- NOTE | 2017-10-12 14:34 | Magnetic Resonance Report ---
MRI scan of cervical spine: History: Cervical myelopathy. Technique:, Multisequence images were obtained without contrast injection. Findings: Cervicomedullary junction and cerebellar tonsils appears normal. Normal cervical lordosis. Normal pre-and paravertebral soft tissue. Normal height and signal intensity of vertebral bodies. Decrease in height and signal intensity at C3-C4, C4-C5, C5-C6 and C6-C7 secondary to cervical spondylosis. C1-C2. Normal. C2-C3. Normal. C3-C4. Bilateral moderate to severe neural foramina narrowing and mild central canal spinal stenosis secondary to disc osteophyte complex and uncovertebral joint hypertrophy and facet hypertrophy. C4-C5. Bilateral severe neuroforaminal narrowing and moderate central canal spinal stenosis secondary to disc osteophyte complex and uncovertebral joint hypertrophy and facet joint hypertrophy. C5-C6. Moderate to severe bilateral neural foramina narrowing and moderate to severe central canal spinal stenosis secondary to disc osteophyte complex and uncovertebral joint hypertrophy and facet joint hypertrophy. C6-C7. Moderate to severe bilateral neural foramina narrowing with severe central canal spinal stenosis secondary to disc osteophyte complex and uncovertebral joint hypertrophy and facet clinical atrophy. C7-T1. Normal. No evidence of cord edema or hemorrhage. Impression: Multilevel bilateral neural foraminal narrowing and central canal spinal stenosis as detailed above. No evidence of cord edema or hemorrhage.
== END 2017-10-12 07:47 | disposition home or self-care (01) ==
LOC: MRI 07:46
PROVIDERS: ATTEND Psychiatry & Neurology Neurology
DX: M48.02 Spinal stenosis, cervical region (principal); M47.12 Other spondylosis with myelopathy, cervical region
CPT/HCPCS: 72141

== ENCOUNTER 2017-11-04 03:14 | Emergency (ER) | payer BC, MEDICARE ==
[2017-11-04 03:32] VITALS: BP 134/82
[2017-11-04 04:30] LABS: Bacteria,Urine 3+ /HPF (Negative); Bilirubin,Urine NEG (Negative); Blood,Urine LG (Negative); Color,Urine Amber (Yellow); Mucus,Urine 2+ /HPF; Urobilinogen,Urine < 2.0 mg/dL (<2.0)
[2017-11-04 04:31] LABS: Protein,Urine >500 mg/dL (Negative); RBC,Urine > 182.0 /HPF (0.0-6.0); WBC,Urine > 182.0 /HPF (0.0-6.0)
[2017-11-04] MEDS ORDERED: LEVAQUIN PO ONE (04:46)
--- NOTE | 2017-11-04 05:18 | Emergency Department Report ---
ED Male HPI - General Chief complaint: Urogenital-Male Stated complaint: POSS UTI Time Seen by Provider: 11/04/17 04:19 Source: patient Mode of arrival: Ambulatory Limitations: No Limitations - History of Present Illness Initial comments: This is a 71-year-old male nontoxic, well nourished in appearance, no acute signs of distress presents to the ED with c/o of dysuria and hematuria 5 days. Patient denies any abdominal pain. Patient denies any back pain, fever, chills, nausea, vomiting, chest pain, short of breath, headache or stiff neck. Patient denies any penile discharge or ulcers. Patient denies any testicle pain and swelling. Patient states allergies to penicillin with past medical history of asthma, hypertension and kidney stones. MD Complaint: dysuria -: days(s) (5) Radiation: none Severity: mild Severity scale (0 -10): 8 Quality: burning Consistency: constant Improves with: none Worsens with: urination denies other symptoms. denies: discharge, swelling, mass, rash, urinary retention, blood in urine, dysuria, fever, nausea/vomiting, incontinence - Related Data Home Medications Medication Instructions Recorded Confirmed Last Taken ALBUTEROL Inhaler [ProAir HFA 2 puff IH QID PRN 10/31/14 10/16/16 Unknown Inhaler] Amlodipine Besylate 10 mg PO DAILY 11/14/14 10/16/16 11/14/14 05:00 Atorvastatin Calcium 20 mg PO DAILY 10/16/16 10/16/16 Unknown Previous Rx's Medication Instructions Recorded Last Taken Type Cyclobenzaprine [Flexeril 10 MG 10 mg PO Q8H PRN #60 tablet 11/15/14 Unknown Rx TAB] Aspirin [Aspirin BABY CHEW TAB] 81 mg PO QDAY #30 tab.chew 10/19/16 Unknown Rx Carvedilol [Coreg] 12.5 mg PO BID #60 tablet 10/19/16 Unknown Rx Lisinopril [Zestril TAB] 10 mg PO BID #30 tablet 10/19/16 Unknown Rx Ciprofloxacin HCl [Ciprofloxacin 500 mg PO Q12HR #14 tab 11/04/17 Unknown Rx TAB] Allergies Allergy/AdvReac Type Severity Reaction Status Date / Time peanut Allergy Anaphylaxis Verified 10/22/16 06:35 Penicillins Allergy Itching Verified 04/15/14 11:29 ED Review of Systems ROS: Stated complaint: POSS UTI Other details as noted in HPI Constitutional: denies: chills, fever Eyes: denies: eye pain, eye discharge, vision change ENT: denies: ear pain, throat pain Respiratory: denies: cough, shortness of breath, wheezing Cardiovascular: denies: chest pain, palpitations Endocrine: no symptoms reported Gastrointestinal: denies: abdominal pain, nausea, diarrhea Genitourinary: urgency, dysuria, frequency, hematuria. denies: discharge, testicular pain, testicular mass Musculoskeletal: denies: back pain, joint swelling, arthralgia Skin: denies: rash, lesions Neurological: denies: headache, weakness, paresthesias Psychiatric: denies: anxiety, depression Hematological/Lymphatic: denies: easy bleeding, easy bruising ED Past Medical Hx - Past Medical History Previous Medical History?: Yes Hx Hypertension: Yes Hx Kidney Stones: Yes Hx Asthma: Yes (seasonal.) Additional medical history: bells palsy - Surgical History Past Surgical History?: Yes Hx Cholecystectomy: Yes (2009) - Social History Smoking Status: Never Smoker Substance Use Type: None - Medications Home Medications: Home Medications Medication Instructions Recorded Confirmed Last Taken Type ALBUTEROL Inhaler [ProAir HFA 2 puff IH QID PRN 10/31/14 10/16/16 Unknown History Inhaler] Amlodipine Besylate 10 mg PO DAILY 11/14/14 10/16/16 11/14/14 05:00 History Cyclobenzaprine [Flexeril 10 MG 10 mg PO Q8H PRN #60 tablet 11/15/14 10/16/16 Unknown Rx TAB] Atorvastatin Calcium 20 mg PO DAILY 10/16/16 10/16/16 Unknown History Aspirin [Aspirin BABY CHEW TAB] 81 mg PO QDAY #30 tab.chew 10/19/16 Unknown Rx Carvedilol [Coreg] 12.5 mg PO BID #60 tablet 10/19/16 Unknown Rx Lisinopril [Zestril TAB] 10 mg PO BID #30 tablet 10/19/16 Unknown Rx Ciprofloxacin HCl [Ciprofloxacin 500 mg PO Q12HR #14 tab 11/04/17 Unknown Rx TAB] ED Physical Exam - General Limitations: No Limitations General appearance: alert, in no apparent distress - Head Head exam: Present: atraumatic, normocephalic - Eye Eye exam: Present: normal appearance Pupils: Present: normal accommodation - ENT ENT exam: Present: normal exam, mucous membranes moist - Neck Neck exam: Present: normal inspection, full ROM - Respiratory Respiratory exam: Present: normal lung sounds bilaterally. Absent: respiratory distress, wheezes, rales, rhonchi, stridor, chest wall tenderness, accessory muscle use, decreased breath sounds, prolonged expiratory - Cardiovascular Cardiovascular Exam: Present: regular rate, normal rhythm, normal heart sounds. Absent: bradycardia, tachycardia, irregular rhythm, systolic murmur, diastolic murmur, rubs, gallop - GI/Abdominal GI/Abdominal exam: Present: soft, normal bowel sounds. Absent: distended, tenderness, guarding, rebound, rigid, diminished bowel sounds - Rectal Rectal exam: Present: deferred - Extremities Exam Extremities exam: Present: normal inspection, full ROM, normal capillary refill - Back Exam Back exam: Present: normal inspection, full ROM. Absent: tenderness, CVA tenderness (R), CVA tenderness (L), muscle spasm, paraspinal tenderness, vertebral tenderness, rash noted - Neurological Exam Neurological exam: Present: alert, oriented X3, normal gait - Psychiatric Psychiatric exam: Present: normal affect, normal mood - Skin Skin exam: Present: warm, dry, intact, normal color. Absent: rash ED Course Vital Signs 11/04/17 03:28 Temperature 99.2 F Pulse Rate 89 Respiratory 18 Rate Blood Pressure 134/82 O2 Sat by Pulse 97 Oximetry - Reevaluation(s) Reevaluation #1: 11/04/17 05:16 Patient is speaking in full sentences with no signs of distress noted. ED Medical Decision Making - Medical Decision Making This is a 71-year-old male that presents with UTI. Patient is stable and was examined by me. UA obtained with UTI presentation. Urine culture pending. There is no CVA tenderness. Patient did receive a first dose of Levaquin 750 mg by mouth in the ED due to allergies to penicillin type I. Patient is discharged with ciprofloxacin 7 days. Patient was referred to Follow-up with a primary care doctor in 3-5 days or if symptoms worsen and continue return to emergency room as soon as possible. At time of discharge, the patient does not seem toxic or ill in appearance. No acute signs of distress noted. Patient agrees to discharge treatment plan of care. No further questions noted by the patient. Critical care attestation.: If time is entered above; I have spent that time in minutes in the direct care of this critically ill patient, excluding procedure time. ED Disposition Clinical Impression: UTI (urinary tract infection) Qualifiers: Urinary tract infection type: site unspecified Hematuria presence: with hematuria Qualified Code(s): N39.0 - Urinary tract infection, site not specified ; R31.9 - Hematuria, unspecified Disposition: DC- TO HOME OR SELFCARE Is pt being admited?: No Does the pt Need Aspirin: No Condition: Stable Instructions: Urinary Tract Infection in Men (ED), Ciprofloxacin (By mouth) Additional Instructions: Follow-up with a primary care doctor in 3-5 days or if symptoms worsen and continue return to emergency room as soon as possible. Prescriptions: Ciprofloxacin HCl [Ciprofloxacin TAB] 500 mg PO Q12HR #14 tab Referrals: PRIMARY CARE, [Primary Care Provider] - 3-5 Days JASON YAÑEZ MD [Staff Physician] - 3-[address] [facility] [Outside] - 3-5 Days [facility] [Outside] - 3-5 Days Forms: Work/School Release Form(ED)
== END 2017-11-04 05:32 | disposition home or self-care (01) ==
LOC: ED 03:14
DX: N39.0 Urinary tract infection, site not specified (principal); I10 Essential (primary) hypertension; Z88.0 Allergy status to penicillin; Z91.010 Allergy to peanuts
CPT/HCPCS: 81001; 87086; 99283

== ENCOUNTER 2017-12-31 06:28 | Emergency (ER) | payer OTHER, BC, MEDICARE ==
[2017-12-31 06:35] VITALS: BP 135/74
--- NOTE | 2017-12-31 06:50 | Emergency Department Report ---
ED Laceration HPI - HPI Chief Complaint: Wound/Laceration Stated Complaint: FALL Time Seen by Provider: 12/31/17 06:45 Occurred When: Today Severity: mild Tetanus Status: Up to Date Laceration Symptoms: Yes Pain, No Foreign Body Sensation, No Numbness, No Weakness Other History: 72-year-old -[place] male comes to [employer] has an employee. 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 Patient denies hitting his head no nausea no vomiting no change of vision or dizziness. He past medical history of htn, cva, besides hiccups currently takes no medications on a daily basis and has an allergy to penicillin and peanuts. Patient has no other concerns or complaints at this time. ED Review of Systems ROS: Stated complaint: FALL Other details as noted in HPI Comment: All other systems reviewed and negative Skin: other (cut to right elbow) ED Past Medical Hx - Past Medical History Hx Hypertension: Yes Hx Kidney Stones: Yes Hx Asthma: Yes (seasonal.) Additional medical history: bells palsy - Surgical History Hx Cholecystectomy: Yes (2009) - Social History Smoking Status: Never Smoker Substance Use Type: None - Medications Home Medications: Home Medications Medication Instructions Recorded Confirmed Last Taken Type ALBUTEROL Inhaler [ProAir HFA 2 puff IH QID PRN 10/31/14 10/16/16 Unknown History Inhaler] Amlodipine Besylate 10 mg PO DAILY 11/14/14 10/16/16 11/14/14 05:00 History Cyclobenzaprine [Flexeril 10 MG 10 mg PO Q8H PRN #60 tablet 11/15/14 10/16/16 Unknown Rx TAB] Atorvastatin Calcium 20 mg PO DAILY 10/16/16 10/16/16 Unknown History Aspirin [Aspirin BABY CHEW TAB] 81 mg PO QDAY #30 tab.chew 10/19/16 Unknown Rx Carvedilol [Coreg] 12.5 mg PO BID #60 tablet 10/19/16 Unknown Rx Lisinopril [Zestril TAB] 10 mg PO BID #30 tablet 10/19/16 Unknown Rx Ciprofloxacin HCl [Ciprofloxacin 500 mg PO Q12HR #14 tab 11/04/17 Unknown Rx TAB] Laceration Physical Exam - Exam General: Vital signs noted. No distress. Alert and acting appropriately. Wound Length (cm): 1 Laceration Location: Upper Extremity (right elbow) Laceration Exam: Yes Normal Distal CMS, No Foreign Body, No Exposed Tendon, Vessel, or Nerve, No Tendon Injury ED Course Vital Signs 12/31/17 12/31/17 06:25 06:35 Temperature 98.1 F Pulse Rate 71 70 Respiratory 18 18 Rate Blood Pressure 135/74 135/74 O2 Sat by Pulse 97 98 Oximetry - Laceration /Wound Repair Right Elbow Wound Location: upper extremity Wound Length (cm): 1 (rt elbow) Wound's Depth, Shape: superficial Wound Explored: clean Irrigated w/ Saline (ccs): 45 Betadine Prep?: Yes Wound Debrided: minimal Wound Repaired With: Dermabond Sterile Dressing Applied?: Yes Progress: Patient tolerated procedure well. ED Medical Decision Making - Medical Decision Making Patient has been evaluated by this provider in fast track. Laceration to right elbow continues skin adhesive to repair. Please try to avoid bending the elbow for the next 2-3 hours to allow the skin adhesive to heal the laceration. Tylenol or Motrin for any pain. Critical care attestation.: If time is entered above; I have spent that time in minutes in the direct care of this critically ill patient, excluding procedure time. ED Disposition Clinical Impression: Laceration of elbow, right Qualifiers: Encounter type: initial encounter Qualified Code(s): S51.011A - Laceration without foreign body of right elbow, initial encounter Disposition: DC-01 TO HOME OR SELFCARE Is pt being admited?: No Does the pt Need Aspirin: No Condition: Stable Instructions: Skin Adhesive Care (ED) Additional Instructions: Please keep wound clean and dry. Tylenol or Motrin for pain as needed. Referrals: your,provider [Other] - 3-5 Days Forms: Work/School Release Form(ED)
== END 2017-12-31 06:56 | disposition home or self-care (01) ==
LOC: EEVIPCON 06:28 → ED 06:28
DX: S51.011A Laceration without foreign body of right elbow, initial encounter (principal); I10 Essential (primary) hypertension; J45.909 Unspecified asthma, uncomplicated; Z90.49 Acquired absence of other specified parts of digestive tract; Z88.5 Allergy status to narcotic agent; Z87.442 Personal history of urinary calculi; W19.XXXA Unspecified fall, initial encounter; Y93.89 Activity, other specified; Y99.8 Other external cause status; Y92.89 Other specified places as the place of occurrence of the external cause

== ENCOUNTER 2018-03-06 06:14 | Outpatient (CLI) | payer BC, MEDICARE ==
--- NOTE | 2018-03-06 08:14 | Cat Scan Report ---
CT HEAD WITHOUT CONTRAST: HISTORY: Meningioma. TECHNIQUE: Sequential 2.5mm CT images. COMPARISON: 08/21/14. FINDINGS: Cerebral Parenchyma: Left frontal craniotomy changes are again identified. There is an area of encephalomalacia in the left frontal lobe measuring approximately 3.8 x 2.6 cm which is unchanged since the previous exam. Although this exam is slightly limited without IV contrast, no residual extra axial mass consistent with meningioma is identified. The remaining brain parenchyma is within normal limits. Cerebellum: Within normal limits. Brainstem: Within normal limits. Ventricles: Normal. Sella: Normal. Extra-axial spaces: Normal. Basal Cisterns: Normal. Intracranial Hemorrhage: None. Midline Shift: None. Sinuses: Normal. Mastoid Air Cells: Normal. Visualized Orbits: Normal. IMPRESSION: Surgical changes in the left frontal lobe. No evidence for residual or recurrent meningioma noncontrast CT. No change since 08/21/14.
== END 2018-03-06 06:15 | disposition home or self-care (01) ==
LOC: CT 06:14
PROVIDERS: ATTEND Neurological Surgery
DX: D32.9 Benign neoplasm of meninges, unspecified (principal); I10 Essential (primary) hypertension; E78.00 Pure hypercholesterolemia, unspecified; J45.909 Unspecified asthma, uncomplicated; Z98.890 Other specified postprocedural states; Z90.49 Acquired absence of other specified parts of digestive tract
CPT/HCPCS: 70450